=== PATIENT | female | born 1955 | race African-American/Black ===

== ENCOUNTER 2018-08-01 13:12 | Inpatient (IN) | payer SELFPAY ==
[2018-08-01] MEDS ORDERED: Nitroglycerin 0.4 MG TAB 1 EACH ONE (13:20)
[2018-08-01 13:55] LABS: #Basophils 0.1 thou/uL (0.0-0.2); #Eosinphils 0.1 thou/uL (0.0-0.7); #Lymphocytes 3.3 thou/uL (1.20-3.40); #Monocytes 0.4 thou/uL (0.11-0.59); #Neutrophils 3.6 thou/uL (1.40-6.50); %Basophils 0.7 % (0.0-1.0); %Eosinophils 1.9 % (0.0-10.0); %Lymphocytes 43.7 % (21.0-51.0); %Monocytes 5.7 % (0.0-10.0); Hemoglobin 12.7 g/dL (12.0-16.0); Mean Corpuscular Hemoglobin 30.9 pg (27.0-31.0); Mean Corpuscular Volume 93.7 fL (78.0-98.0); Mean Platelet Volume 11.6 fL (7.4-10.4); Platelet Count 150 thou/uL (130-400); RBC Distribution Width 13.5 % (11.5-14.5); White Blood Cell (WBC) Count 7.6 thou/uL (4.8-10.8)
--- NOTE | 2018-08-01 14:03 | RAD ---
SINGLE VIEW OF THE CHEST: COMPARISON: 03/08/2015. HISTORY: Shortness of breath. FINDINGS: A single view of the chest shows an enlarged cardiomediastinal silhouette. Bilateral pulmonary vascu lar enlargement is seen. Opacities are seen extending into the lower lobes which may represent pulmo nary edema. No pleural effusion is seen. IMPRESSION: Cardiomegaly and pulmonary vascular congestion may be secondary to congestive heart failure with volu me overload. POS: [facility]
[2018-08-01 14:07] LABS: ALT (SGPT) 48 U/L (8-55); AST (SGOT) 54 U/L (5-34); Albumin 3.6 g/dL (3.4-4.8); Alkaline Phosphatase 131 U/L (40-150); Anion Gap 16 mmol/L (10-20); BUN (Urea Nitrogen) 24 mg/dL (9.8-20.1); Bilirubin, Total 0.8 mg/dL (0.2-1.2); Calc. Creatinine Clearance 0 mL/min (70-130); Calcium 9.6 mg/dL (7.8-10.44); Carbon Dioxide 23 mmol/L (23-31); Chloride 105 mmol/L (98-107); Estimated GFR-MDRD 36; Globulin 4.5 g/dL (2.4-3.5); Glucose 309 mg/dL (80-115); Potassium 3.4 mmol/L (3.5-5.1); Protein, Total 8.1 g/dL (6.0-8.3); Sodium 141 mmol/L (136-145)
[2018-08-01] MEDS ORDERED: Nitroglycerin 50 MG/250 ML BOT 250 ML ONE (14:24)
[2018-08-01 14:27] LABS: CKMB 1.6 ng/mL (0-6.6)
[2018-08-01] MEDS ORDERED: Ondansetron PF 4 MG/2 ML Vial ONE (15:12)
[2018-08-01] MEDS ORDERED: Furosemide 40 MG/4 ML VIAL ONE ×2 (15:38→17:07)
[2018-08-01] MEDS ORDERED: cloNIDine 0.1 MG TAB ONE (17:07)
[2018-08-01] MEDS ORDERED: Acetaminophen 325 MG TAB ONE (17:07)
[2018-08-01 17:16] LABS: Troponin I 0.043 ng/mL (< 0.028)
[2018-08-01 18:19] VITALS: BMI 26.9
[2018-08-01] MEDS ORDERED: Acetaminophen 650 MG Suppository PR PRN (18:23)
[2018-08-01] MEDS ORDERED: SYSTANE 3.5 GM TUBE EA EYE PRN (18:23)
[2018-08-01] MEDS ORDERED: Acetaminophen 650 MG/20.3 ML UDCUP PO PRN (18:23)
[2018-08-01] MEDS ORDERED: Bisacodyl 10 MG SUPP PR PRN (18:23)
[2018-08-01] MEDS ORDERED: Nitroglycerin 50 MG/250 ML BOT 250 ML IVPB PRN (18:23)
[2018-08-01] MEDS ORDERED: Nitroglycerin 0.4 MG TAB (25 Tab Bottle) PO PRN (18:26)
[2018-08-01] MEDS ORDERED: Dextrose 50% Abboject 50 ML SYRINGE SLOW IVP PRN (18:26)
[2018-08-01] MEDS ORDERED: Insulin Regular 300 UNITS/3 ML VIAL SC PRN (18:26)
[2018-08-01] MEDS ORDERED: Dextrose 5% in Water 1,000 ML IV PRN (18:26)
[2018-08-01] MEDS ORDERED: Labetalol HCl 100 MG/20 ML VIAL SLOW IVP PRN (18:28)
[2018-08-01] MEDS ORDERED: Carvedilol 6.25 MG TAB PO SCH (18:30)
[2018-08-01] MEDS ORDERED: cloNIDine 0.1 MG TAB PO PRN (18:36)
[2018-08-01 20:17] LABS: Troponin I 0.049 ng/mL (< 0.028)
[2018-08-01] MEDS ORDERED: cloNIDine 0.1 MG TAB PO SCH (21:00)
[2018-08-01] MEDS: Famotidine 20 MG TAB PO SCH (21:53)
[2018-08-01] MEDS ORDERED: Acetaminophen 325 MG TAB PO PRN (22:41)
--- NOTE | 2018-08-01 23:54 | HP ---
PRIMARY CARE PHYSICIAN: None. PRIMARY AIDS SOCIAL WORKER: None. CHIEF COMPLAINT: Shortness of breath. HISTORY OF PRESENT ILLNESS: The patient is a 63-year-old female with hypertension with hypertensive heart disease and aortic aneurysm, presented to the emergency room with worsening shortness of breath along with chest tightness that started earlier today. Please note that the patient does not take any antihypertensives at home. She was last evaluated at this facility in 2014. Since 2015, she denies any hospitalization. She is currently on noninvasive positive pressure ventilation. The chest discomfort improved with nitroglycerin drip. According to her daughter, the shortness of breath and chest tightness started earlier today. It was more or less constant. She was unable to breathe and ambulance was called. When ambulance arrived, her blood pressure was 239/134. She received nitroglycerin spray and 1 inch patch was placed. She was placed on noninvasive positive pressure ventilation. A 10 mg labetalol was administered by EMS. She is currently on a nitroglycerin drip. PAST MEDICAL HISTORY: 1. Hypertension with hypertensive heart disease. 2. Medication noncompliance. 3. Chronic low back pain. 4. Diabetes mellitus type 2. 5. Dyslipidemia. 6. Aortic aneurysm. PAST SURGICAL HISTORY: . CURRENT HOME MEDICATIONS: Reviewed with the patient and none. ALLERGIES: THE PATIENT IS ALLERGIC TO PENICILLIN. SOCIAL HISTORY: The patient currently lives at home with her family. She is full code. She denies any history of smoking, alcohol, or drug use. FAMILY HISTORY: Positive for heart disease. REVIEW OF SYSTEMS: The patient denies any nausea, vomiting, epistaxis, or hematuria. No back pain reported. The chest tightness was more or less constant and has improved. It was gradual in onset. All other review of systems was reviewed and was found negative. PHYSICAL EXAMINATION: VITAL SIGNS: Temperature 98.2, respiration 36, pulse rate of 101, blood pressure 209/126 with O2 saturation 100% on noninvasive positive pressure ventilation on ER arrival. GENERAL: A 63-year-old female, in moderate to severe respiratory distress. HEENT: Head is atraumatic and normocephalic. Sclerae anicteric. Moist mucous membranes. No oral lesion. NECK: Supple. JVD elevated. No carotid bruit. LUNGS: Showed diffuse bibasilar rales with scattered rhonchi. Minimal wheezing. Accessory muscle use noted. HEART: S1 and S2 present. Regular rate and rhythm. Tachycardic. 2/6 systolic murmur over the mitral area. ABDOMEN: Soft and nontender. Bowel sounds present. EXTREMITIES: 1+ edema in bilateral lower extremity. No calf tenderness. SKIN: Warm and dry. LYMPH NODES: No palpable lymph nodes in the neck. PERIPHERAL VASCULAR: Radial pulses palpable bilaterally and equal. MUSCULOSKELETAL: No joint swelling or tenderness. LABORATORY DATA: 1. EKG by my review showed sinus rhythm with repolarization changes and left axis deviation. Chest x-ray by my review showed pulmonary vascular congestion. No mediastinal widening appreciated. 2. Troponin in the indeterminate range at 0.049. BNP 2062. Creatinine 1.72, potassium 3.4. 3. CT scan of the brain was negative for acute findings. IMPRESSION: 1. Hypertensive emergency with flash pulmonary edema. 2. Acute hypoxic respiratory failure secondary to pulmonary edema. 3. Acute kidney injury secondary to uncontrolled hypertension. 4. Elevated troponin secondary to congestive heart failure/demand ischemia. 5. Hypokalemia. 6. Medication noncompliance. 7. Prolonged QT. 8. History of aortic aneurysm. 9. Diabetes mellitus type 2. 10. Chronic low back pain. 11. Penicillin allergy. PLAN: The patient will be monitored in the intensive care unit. We will continue noninvasive positive pressure ventilation. Continue nitroglycerin drip. We will start her on carvedilol 12.5 mg b.i.d. due to aortic aneurysm. Continue IV diuretics. Clonidine as needed. Consult Cardiology and Critical Care. Check A1c and TSH in a.m. Workup for secondary hypertension. Plan was discussed with the patient and the family at the bedside. They stated understanding. Job ID: [id number]
[2018-08-02 00:32] LABS: Bilirubin Negative (Negative); Blood, Urine Trace (Negative); Clarity CLEAR (Clear); Glucose, Urine (Dipstick) Negative (Negative); Leukocyte Negative (Negative); Nitrite Negative (Negative); Protein, Urine (Dipstick) 100 mg/dL (Neg-Trace); Specific Gravity, Urine 1.008 (1.002-1.036)
[2018-08-02 00:35] LABS: Bacteria/HPF None Seen HPF (None Seen); Hyaline Casts/LPF 0-3 HYALINE CAST LPF (0-3 Hyaline); Pathc Cast-AUWi Flag 0.14 (0-2.49); RBC/HPF 0-3 HPF (0-3); Squamous Epithelial None Seen HPF (0-3); WBC/HPF None Seen HPF (0-3)
[2018-08-02] MEDS: Furosemide 40 MG/4 ML VIAL SLOW IVP SCH ×2 (05:25→13:02)
[2018-08-02 07:34] LABS: #Basophils 0.1 thou/uL (0.0-0.2); #Eosinphils 0.1 thou/uL (0.0-0.7); #Lymphocytes 2.1 thou/uL (1.20-3.40); #Monocytes 0.5 thou/uL (0.11-0.59); #Neutrophils 3.9 thou/uL (1.40-6.50); %Basophils 0.8 % (0.0-1.0); %Eosinophils 1.4 % (0.0-10.0); %Lymphocytes 32.1 % (21.0-51.0); %Monocytes 6.9 % (0.0-10.0); %Neutrophils 58.8 % (42.0-75.0); ALT (SGPT) 40 U/L (8-55); AST (SGOT) 39 U/L (5-34); Alkaline Phosphatase 104 U/L (40-150); Anion Gap 11 mmol/L (10-20); BUN (Urea Nitrogen) 28 mg/dL (9.8-20.1); Bilirubin, Total 0.6 mg/dL (0.2-1.2); Calc. Creatinine Clearance 38 mL/min (70-130); Calcium 9.2 mg/dL (7.8-10.44); Carbon Dioxide 26 mmol/L (23-31); Chloride 105 mmol/L (98-107); Estimated GFR-MDRD 34; Globulin 3.7 g/dL (2.4-3.5); Glucose 278 mg/dL (80-115); Hemoglobin 11.3 g/dL (12.0-16.0); Magnesium 1.5 mg/dL (1.6-2.6); Mean Corpuscular HGB CONC 32.9 g/dL (32.0-36.0); Mean Corpuscular Hemoglobin 30.7 pg (27.0-31.0); Mean Corpuscular Volume 93.1 fL (78.0-98.0); Mean Platelet Volume 11.6 fL (7.4-10.4); Platelet Count 118 thou/uL (130-400); Potassium 3.4 mmol/L (3.5-5.1); Protein, Total 6.7 g/dL (6.0-8.3); RBC Distribution Width 13.2 % (11.5-14.5); Red Blood Cell (RBC) Count 3.67 mill/uL (4.20-5.40); Sodium 139 mmol/L (136-145); White Blood Cell (WBC) Count 6.7 thou/uL (4.8-10.8)
[2018-08-02] MEDS ORDERED: Magnesium Sulfate 2 GM in Sodium Chloride 0.9% 100 ML IVPB SCH (08:00)
[2018-08-02] MEDS ORDERED: Magnesium 2 GM/50 ML 2 GM in Premix Bag 1 BAG IVPB SCH (08:30)
[2018-08-02] MEDS ORDERED: cloNIDine 0.1 MG TAB PO SCH (09:00)
[2018-08-02] MEDS: Carvedilol 6.25 MG TAB PO SCH ×2 (09:08→16:34)
[2018-08-02] MEDS: Aspirin 81 mg Enteric Coated Tablet PO SCH (09:09)
[2018-08-02] MEDS: Potassium Chloride 10 MEQ TAB PO SCH ×2 (09:09→16:33)
[2018-08-02] MEDS: Insulin Regular 300 UNITS/3 ML VIAL SC PRN ×3 (09:14→16:43)
--- NOTE | 2018-08-02 10:25 | CON ---
DATE OF CONSULTATION: HISTORY OF PRESENT ILLNESS: Darcy Barrera is a 63-year-old morbidly obese female, 81 kilograms, presented with shortness of breath with an associated fever, chills, smoked a pack a day for 30 years, quit smoking 30 years ago. No history of TB, pneumonia, or bronchial asthma. In most days, she says she can walk a half block following which she gets markedly short of breath. Denies any chest pain, but did have some tightness in the chest. She was given nitroglycerin paste and CPAP. She snores and awakens herself up with choking sensation, symptoms of sleep apnea. She has no primary care physician. PAST MEDICAL HISTORY: Apparently, history of diabetes, hypertension, takes no medication. PAST SURGICAL HISTORY: . Alcohol, none. Tobacco as noted. ALLERGIES: NONE. CURRENT MEDICATIONS: None. REVIEW OF SYSTEMS: Otherwise 10-point negative. PHYSICAL EXAMINATION: VITAL SIGNS: Sats are 100% on 2 L, blood pressure 130/80, pulse 77, respirations 25. CHEST: Minimal crackles without any wheezing. CARDIAC: Normal S1, S2. No gallops. ABDOMEN: No masses. EXTREMITIES: No edema. LABORATORY DATA: Her lab shows a white count platelet count is low 118. Creatinine is 1.8. Hemoglobin A1c is 9. Urine was normal. IMAGING STUDIES: Chest x-ray shows evidence of bibasilar infiltrates, cardiomegaly, consistent with CHF. IMPRESSION: Dyspnea, congestive heart failure, chronic obstructive pulmonary disease, pneumonia, diabetes, sleep apnea, morbid obesity. PLAN: I agree with present treatment with Cardiac input and needs outpatient sleep study. She was started on neb treatment, supportive care. Consider pulmonary function tests when she is stable. 70 minutes consultation note, 50% direct patient care. Job ID: [id number]
--- NOTE | 2018-08-02 19:14 | PDOC.PN ---
- Subjective Encounter Start Date: 08/02/18 Encounter Start Time: 09:30 Patient seen and examined for CHF/Resp failure. Off NIPPV. No CP. No new complaints. No overnight events - Objective MAR Reviewed: Yes Vital Signs & Weight: Vital Signs (12 hours) Temp Pulse Resp BP BP Pulse Ox 08/02/18 18:17 92 16 08/02/18 17:09 77 20 122/67 98 08/02/18 13:46 95 08/02/18 13:45 95 16 08/02/18 11:45 97.1 F L 80 20 139/82 98 08/02/18 09:08 129/77 08/02/18 08:23 96 08/02/18 08:00 97.5 F L 98 Weight Weight 164 lb 14.492 oz Most Recent Monitor Data Heart Rate from ECG 79 NIBP 141/87 NIBP BP-Mean 105 Respiration from ECG 18 SpO2 98 I&O: 08/01/18 08/02/18 08/03/18 06:59 06:59 06:59 Intake Total 693 940 Output Total 765 590 Balance -72 350 Result Diagrams: 08/02/18 06:48 08/02/18 06:48 Additional Labs: Accuchecks 08/02/18 08/02/18 08/01/18 16:39 11:18 21:53 POC Glucose 264 H 257 H 214 H EKG Reviewed by me: Yes (Tele SR) Phys Exam - Physical Examination Constitutional: NAD Respiratory: no wheezing, no rhonchi Bibasilar rales, Symmetrical Cardiovascular: RRR, no rub no heaves/pulsations Gastrointestinal: soft, non-tender, no distention, positive bowel sounds Musculoskeletal: edema present Neurological: non-focal, normal sensation, moves all 4 limbs Psychiatric: normal affect, A&O x 3 Skin: no rash Dx/Plan - Plan DVT proph w/SCDs IMPRESSION: 1. Hypertensive emergency with flash pulmonary edema/Acute CHF exacerbation. 2. Acute hypoxic respiratory failure secondary to pulmonary edema. s/p NIPPV. 3. Acute kidney injury secondary to uncontrolled hypertension. 4. Elevated troponin secondary to congestive heart failure/demand ischemia. 5. Hypokalemia/Hypomagnessemia. 6. Medication noncompliance. 7. Prolonged QT. 8. History of aortic aneurysm. 9. Diabetes mellitus type 2. 10. Chronic low back pain. 11. Penicillin allergy. PLAN: Cont diuretics Transfer to Tele Cont Coreg Cont ASA Hold ACEI due to ALEC AM labs Await Echo Replace electrolytes Renin/Aldosterone pending Laboratory Tests 08/02/18 08/02/18 06:48 06:49 Hemoglobin A1c 9.0 H Magnesium 1.5 L Review of Systems - Review of Systems Respiratory: SOB with Excertion. negative: Cough, Dry, Shortness of Breath, Hemoptysis, Pleuritic Pain, Sputum, Wheezing Cardiovascular: negative: chest pain, palpitations, orthopnea, paroxysmal nocturnal dyspnea, edema, light headedness, other Gastrointestinal: negative: Nausea, Vomiting, Abdominal Pain, Diarrhea, Constipation, Melena, Hematochezia, Other - Medications/Allergies Allergies/Adverse Reactions: Allergies Allergy/AdvReac Type Severity Reaction Status Date / Time Penicillins Allergy Verified 12/30/13 13:02 Medications: Current Medications Acetaminophen (Tylenol Elixir) 650 mg PO Q6H PRN PRN Reason: Fever > 101 or Mild Pain Acetaminophen (Tylenol) 650 mg TN Q6H PRN PRN Reason: Fever > 101 or Mild Pain Acetaminophen (Tylenol) 650 mg PO Q4H PRN PRN Reason: Headache/Fever or Mild Pain Albuterol/Ipratropium (Duoneb) 3 ml NEB [id number] [facility] Last Admin: 08/02/18 18:17 Dose: 3 ml Aspirin (Ecotrin) 81 mg PO DAILY [facility] Last Admin: 08/02/18 09:09 Dose: 81 mg Bisacodyl (Dulcolax) 10 mg TN DAILYPRN PRN PRN Reason: Constipation Carvedilol (Coreg) 12.5 mg PO BID-WM [facility] Last Admin: 08/02/18 16:34 Dose: 12.5 mg Clonidine (Catapres) 0.1 mg PO Q4H PRN PRN Reason: Systolic BP > 180 Dextrose/Water (Dextrose 50%) 25 gm SLOW IVP PRN PRN PRN Reason: Hypoglycemia Doxycycline Hyclate (Vibramycin) 100 mg PO BID [facility] Stop: 08/07/18 21:01 Famotidine (Pepcid) 20 mg PO QPM [facility] Last Admin: 08/01/18 21:53 Dose: 20 mg Furosemide (Lasix) 40 mg SLOW IVP 0600,1400 [facility] Last Admin: 08/02/18 13:02 Dose: 40 mg Glucagon (Glucagon) 1 mg IM PRN PRN PRN Reason: Hypoglycemia Dextrose/Water (D5w) 1,000 mls @ 0 mls/hr IV .Q0M PRN PRN Reason: Hypoglycemia Insulin Human NPH (Humulin N) 10 unit SC BID [facility] Insulin Human Regular (Humulin R) 0 units SC .MODERATE SLIDING SC PRN PRN Reason: Moderate Correctional Scale Last Admin: 08/02/18 16:43 Dose: 6 unit Insulin Human Regular (Humulin R) 0 units SC .BEDTIME SLIDING SC PRN PRN Reason: Bedtime Correctional Scale Labetalol HCl (Normodyne) 10 mg SLOW IVP Q4H PRN PRN Reason: Systolic BP > 180 Mineral Oil/White Petrolatum (Systane Nighttime Eye Ointment) 0 gm EA EYE PRN PRN PRN Reason: Dry Eyes Nitroglycerin (Nitrostat) 0.4 mg PO Q5MIN PRN PRN Reason: Chest Pain Sodium Chloride (Flush - Normal Saline) 10 ml IVF Q12HR [facility] Last Admin: 08/02/18 13:02 Dose: 10 ml Sodium Chloride (Flush - Normal Saline) 10 ml IVF PRN PRN PRN Reason: Saline Flush
[2018-08-02] MEDS: NPH, Human Insulin Isophane 300 UNIT/3 ML VIAL SC SCH (21:15)
[2018-08-02] MEDS: Famotidine 20 MG TAB PO SCH (21:16)
[2018-08-02] MEDS: Doxycycline 100 MG CAP PO SCH (21:16)
[2018-08-03] MEDS: Furosemide 40 MG/4 ML VIAL SLOW IVP SCH (05:23)
[2018-08-03 05:53] LABS: #Basophils 0.1 thou/uL (0.0-0.2); #Eosinphils 0.2 thou/uL (0.0-0.7); #Lymphocytes 2.2 thou/uL (1.20-3.40); #Monocytes 0.5 thou/uL (0.11-0.59); #Neutrophils 3.1 thou/uL (1.40-6.50); %Basophils 0.9 % (0.0-1.0); %Eosinophils 2.8 % (0.0-10.0); %Lymphocytes 37.4 % (21.0-51.0); %Monocytes 7.5 % (0.0-10.0); %Neutrophils 51.4 % (42.0-75.0); Mean Corpuscular HGB CONC 32.5 g/dL (32.0-36.0); Mean Corpuscular Hemoglobin 30.6 pg (27.0-31.0); Mean Platelet Volume 11.2 fL (7.4-10.4); Platelet Count 123 thou/uL (130-400); RBC Distribution Width 13.4 % (11.5-14.5); Red Blood Cell (RBC) Count 3.59 mill/uL (4.20-5.40); White Blood Cell (WBC) Count 5.9 thou/uL (4.8-10.8)
[2018-08-03 06:30] LABS: ALT (SGPT) 40 U/L (8-55); AST (SGOT) 56 U/L (5-34); Alkaline Phosphatase 98 U/L (40-150); Anion Gap 16 mmol/L (10-20); BUN (Urea Nitrogen) 37 mg/dL (9.8-20.1); Bilirubin, Total 0.6 mg/dL (0.2-1.2); Calc. Creatinine Clearance 37 mL/min (70-130); Calcium 9.1 mg/dL (7.8-10.44); Carbon Dioxide 20 mmol/L (23-31); Chloride 106 mmol/L (98-107); Estimated GFR-MDRD 29; Globulin 4.1 g/dL (2.4-3.5); Glucose 191 mg/dL (80-115); Magnesium 2.4 mg/dL (1.6-2.6); Potassium 4.5 mmol/L (3.5-5.1); Protein, Total 7.1 g/dL (6.0-8.3); Sodium 137 mmol/L (136-145)
[2018-08-03] MEDS ORDERED: Furosemide 40 MG/4 ML VIAL SLOW IVP SCH (09:00)
[2018-08-03] MEDS: Aspirin 81 mg Enteric Coated Tablet PO SCH (09:43)
[2018-08-03] MEDS: Carvedilol 6.25 MG TAB PO SCH ×2 (09:43→16:54)
[2018-08-03] MEDS: Doxycycline 100 MG CAP PO SCH ×2 (09:43→20:56)
--- NOTE | 2018-08-03 09:47 | PRG ---
DATE OF SERVICE: 08/03/2018 SUBJECTIVE: A 63-year-old female, who was admitted with shortness of breath. X-ray shows CHF findings. Her EF was 25%. She says she is feeling better this morning. OBJECTIVE: VITAL SIGNS: Saturations are 98% on 2 L, pulse was 80, temperature 98, blood pressure 130/95. CHEST: Bilateral crackles. CARDIAC: Normal S1 and S2. No gallops. ABDOMEN: No masses. LABORATORY DATA: Creatinine is 2.8. White count 5000. IMPRESSION: 1. Congestive cardiomyopathy. 2. Bronchitis. PLAN: 1. Continue cardiac care. 2. Pulmonary follow at a distance. Please call if needed. Job ID: [id number]
[2018-08-03] MEDS: NPH, Human Insulin Isophane 300 UNIT/3 ML VIAL SC SCH ×2 (09:51→20:56)
[2018-08-03] MEDS ORDERED: Communication Order-Pharmacy FS SCH (11:00)
--- NOTE | 2018-08-03 12:03 | CON ---
DATE OF CONSULTATION: HISTORY OF PRESENT ILLNESS: This is a 63-year-old black female with longstanding history of hypertension and noncompliance with medications. She was seen here in December 2013 and ejection fraction was 55% to 60% with left ventricular hypertrophy. She also had a chest CT, which revealed aneurysmal dilatation of the aortic arch, but no dissection. She was discharged on diabetes and blood pressure medicines, and cholesterol medicine. She apparently does not really take any medications and does not recall the last time she regularly took blood pressure medicine. She started to notice increasing exertional dyspnea. She also would have chest pressure at rest or with exertion and whenever she would have this, this would last most of the day. She also began to notice peripheral edema. Due to her worsening breathing, she came to the emergency room for further evaluation. PAST MEDICAL HISTORY: Hypertension, diabetes, hyperlipidemia, aortic aneurysm, and medical noncompliance. OPERATIONS: . MEDICATIONS: None. ALLERGIES: PENICILLIN. SOCIAL HISTORY: She used to smoke many years ago. She does not smoke or drink at the present time. FAMILY HISTORY: No one in her family has had myocardial infarction or bypass surgery. REVIEW OF SYSTEMS: A 10-point review of systems are unremarkable except as noted above. PHYSICAL EXAMINATION: VITAL SIGNS: Blood pressure 152/86 and pulse of 82. HEENT: PERRL. NECK: Supple. CHEST: Clear. CARDIAC: S1 and S2 normal without any S3, S4, or murmurs. Carotid upstrokes normal without bruits. ABDOMEN: Normal bowel sounds without tenderness or organomegaly. The abdomen was obese. EXTREMITIES: Revealed 1+ pretibial edema. NEUROLOGIC: Grossly intact. SKIN: Warm and dry. LABORATORY DATA: EKG revealed normal sinus rhythm with anterior and lateral T-wave changes. Echocardiogram revealed the left ventricle to be increased in size, severe left ventricular dysfunction with ejection fraction of 20% to 25%, moderate left atrial enlargement, moderate mitral regurgitation, mild aortic regurgitation, and [id number] tricuspid regurgitation. Sodium 137, potassium 4.5, chloride 106, carbon dioxide 20, BUN 37, creatinine 2.08, and blood sugars have been sized to 72. Hemoglobin A1c 9.0. Her creatinine has increased from 1.72 to 2.08 since admission and her Lasix dose has been reduced. Troponin I 0.049 and BNP 2061.9. IMPRESSION: 1. Severe cardiomyopathy, probably secondary to longstanding and untreated hypertension. 2. Demand ischemia. 3. Chronic kidney disease. 4. Hypercholesterolemia. 5. Diabetes. 6. Distant smoker. 7. Obesity. 8. Possible sleep apnea. PLAN: With her multiple cardiac risk factors and severe left ventricular dysfunction, coronary artery disease needs to be excluded, this is the reason for her cardiomyopathy. It is recommended she undergo cardiac catheterization. Risks of this were discussed including , myocardial infarction, dye reaction, vascular injury, CVA, transfusion, limb loss, renal loss, etc. Also risk of intervention with stent placement were discussed including , myocardial infarction, emergent CABG, restenosis, stent thrombosis, vessel perforation, etc. I would only place a bare-metal stent in this noncompliant patient. Her cardiac catheterization will be performed in the biplane room to reduce the amount of contrast. Also, consideration should be given to chest CT during this admission to re-evaluate her thoracic aortic aneurysm. I agree with the use of carvedilol. Angiotensin-converting enzyme inhibitor and angiotensin receptor blockers drugs should be avoided with her renal insufficiency. Fasting lipid profile will also be obtained. Certainly, it is a difficult problem in the patient's never takes medications. Consideration also should be given to placement of LifeVest at the time of discharge, although if she cannot afford her medications, I doubt she will be able to obtain a LifeVest. Job ID: [id number]
[2018-08-03] MEDS: Insulin Regular 300 UNITS/3 ML VIAL SC PRN (12:09)
--- NOTE | 2018-08-03 14:29 | CT ---
CT CHEST WITHOUT CONTRAST: Date: 08/03/18 HISTORY: Thoracic aneurysm. COMPARISON: CT dated 03/08/15. FINDINGS: Exam is limited without intravenous contrast. Thoracic aortic size is as above. Measurements of the sinuses of Valsalva and sinotubular junction ar e limited without intravenous contrast. Mid ascending aorta: 3.2 cm Proximal transverse aorta: 2.9 cm Distal transverse aorta: 3.7 cm Proximal descending thoracic aorta: 5.5 cm There are new moderate layering bilateral pleural effusions. Mild third spacing of fluid within the s uperficial soft tissues. Limited evaluation of the upper abdomen is unremarkable. No significant pericardial fluid. Heart size is enlarged. Mild pulmonary venous congestion. No osteolytic or osteoblastic lesions. No thoracic spine compressio n fracture. IMPRESSION: 1. Size unchanged thoracic aortic aneurysm measuring up to 5.5 cm. 2. New moderate layering pleural effusion, as well as mild pulmonary venous congestion, suggesting d ecompensated congestive heart failure. POS: [facility]
--- NOTE | 2018-08-03 20:54 | PDOC.PN ---
- Subjective Encounter Start Date: 08/03/18 Encounter Start Time: 10:30 Patient seen and examined for HTN crisis/CHF. No CP. No new complaints. No overnight events - Objective MAR Reviewed: Yes Vital Signs & Weight: Vital Signs (12 hours) Temp Pulse Resp BP BP Pulse Ox 08/03/18 16:54 152/86 H 08/03/18 16:00 97.5 F L 82 18 129/76 97 08/03/18 12:00 98.0 F 80 18 139/87 99 08/03/18 09:43 152/86 H Weight Weight 185 lb Most Recent Monitor Data Heart Rate from ECG 79 NIBP 141/87 NIBP BP-Mean 105 Respiration from ECG 18 SpO2 98 I&O: 08/02/18 08/03/18 08/04/18 06:59 06:59 06:59 Intake Total 693 940 880 Output Total 765 1140 750 Balance -72 -200 130 Result Diagrams: 08/03/18 04:45 08/03/18 04:45 Additional Labs: Accuchecks 08/03/18 08/03/18 08/03/18 16:48 10:52 06:08 POC Glucose 168 H 258 H 272 H 08/02/18 20:23 POC Glucose 185 H EKG Reviewed by me: Yes (Tele SR) Phys Exam - Physical Examination Constitutional: NAD Respiratory: no wheezing, no rhonchi few rales at bases Cardiovascular: RRR, no rub Gastrointestinal: soft, non-tender Musculoskeletal: no edema Neurological: moves all 4 limbs Dx/Plan - Plan DVT proph w/SCDs IMPRESSION: 1. Hypertensive emergency with flash pulmonary edema/Acute systolic CHF exacerbation. 2. Acute hypoxic respiratory failure secondary to pulmonary edema. s/p NIPPV. 3. Acute kidney injury secondary to uncontrolled hypertension. 4. Elevated troponin secondary to congestive heart failure/demand ischemia. 5. Hypokalemia/Hypomagnessemia. 6. Medication noncompliance. 7. Prolonged QT. 8. History of aortic aneurysm. 9. Diabetes mellitus type 2. uncontrolled. 10. Chronic low back pain. 11. Penicillin allergy. PLAN: Cont diuretics - reduce dose Cont Coreg/ASA Hold ACEI due to ALEC AM labs Cath in AM Renin/Aldosterone pending Add NPH Review of Systems - Review of Systems Respiratory: negative: Cough, Dry, Shortness of Breath, Hemoptysis, SOB with Excertion, Pleuritic Pain, Sputum, Wheezing Cardiovascular: negative: chest pain, palpitations, orthopnea, paroxysmal nocturnal dyspnea, edema, light headedness, other Gastrointestinal: negative: Nausea, Vomiting, Abdominal Pain, Diarrhea, Constipation, Melena, Hematochezia, Other - Medications/Allergies Allergies/Adverse Reactions: Allergies Allergy/AdvReac Type Severity Reaction Status Date / Time Penicillins Allergy Verified 12/30/13 13:02 Medications: Current Medications Acetaminophen (Tylenol) 650 mg OH Q6H PRN PRN Reason: Fever > 101 or Mild Pain Acetaminophen (Tylenol) 650 mg PO Q4H PRN PRN Reason: Headache/Fever or Mild Pain Albuterol/Ipratropium (Duoneb) 3 ml NEB Q6H PRN PRN Reason: SOB &/or Wheezing Aspirin (Ecotrin) 81 mg PO DAILY [facility] Last Admin: 08/03/18 09:43 Dose: 81 mg Bisacodyl (Dulcolax) 10 mg [place] DAILYPRN PRN PRN Reason: Constipation Carvedilol (Coreg) 12.5 mg PO BID-[facility] Last Admin: 08/03/18 16:54 Dose: 12.5 mg Clonidine (Catapres) 0.1 mg PO Q4H PRN PRN Reason: Systolic BP > 180 Dextrose/Water (Dextrose 50%) 25 gm SLOW IVP PRN PRN PRN Reason: Hypoglycemia Doxycycline Hyclate (Vibramycin) 100 mg PO BID [facility] Stop: 08/07/18 21:01 Last Admin: 08/03/18 09:43 Dose: 100 mg Famotidine (Pepcid) 20 mg PO QPM [facility] Last Admin: 08/02/18 21:16 Dose: 20 mg Furosemide (Lasix) 40 mg SLOW IVP DAILY [facility] Last Admin: 08/03/18 09:46 Dose: 40 mg Glucagon (Glucagon) 1 mg IM PRN PRN PRN Reason: Hypoglycemia Dextrose/Water (D5w) 1,000 mls @ 0 mls/hr IV .Q0M PRN PRN Reason: Hypoglycemia Sodium Chloride (Normal Saline 0.9%) 1,000 mls @ 100 mls/hr IV .Q10H [facility] Insulin Human NPH (Humulin N) 10 unit SC BID [facility] Last Admin: 08/03/18 09:51 Dose: 10 unit Insulin Human Regular (Humulin R) 0 units SC .MODERATE SLIDING SC PRN PRN Reason: Moderate Correctional Scale Last Admin: 08/03/18 12:09 Dose: 6 unit Insulin Human Regular (Humulin R) 0 units SC .BEDTIME SLIDING SC PRN PRN Reason: Bedtime Correctional Scale Labetalol HCl (Normodyne) 10 mg SLOW IVP Q4H PRN PRN Reason: Systolic BP > 180 Mineral Oil/White Petrolatum (Systane Nighttime Eye Ointment) 0 gm EA EYE PRN PRN PRN Reason: Dry Eyes Miscellaneous Information (Communication Order-Pharmacy) 0 each FS ONE [facility] Stop: 08/04/18 11:01 Nitroglycerin (Nitrostat) 0.4 mg PO Q5MIN PRN PRN Reason: Chest Pain Sodium Chloride (Flush - Normal Saline) 10 ml IVF Q12HR [facility] Last Admin: 08/03/18 09:50 Dose: 10 ml Sodium Chloride (Flush - Normal Saline) 10 ml IVF PRN PRN PRN Reason: Saline Flush
[2018-08-03] MEDS: Famotidine 20 MG TAB PO SCH (20:56)
[2018-08-04 05:05] LABS: #Eosinphils 0.2 thou/uL (0.0-0.7); #Lymphocytes 1.9 thou/uL (1.20-3.40); #Monocytes 0.5 thou/uL (0.11-0.59); #Neutrophils 3.5 thou/uL (1.40-6.50); %Basophils 0.2 % (0.0-1.0); %Eosinophils 2.8 % (0.0-10.0); %Lymphocytes 31.8 % (21.0-51.0); %Monocytes 7.3 % (0.0-10.0); %Neutrophils 57.8 % (42.0-75.0); Hemoglobin 10.7 g/dL (12.0-16.0); Mean Corpuscular HGB CONC 32.3 g/dL (32.0-36.0); Mean Corpuscular Hemoglobin 30.3 pg (27.0-31.0); Mean Platelet Volume 11.2 fL (7.4-10.4); Platelet Count 118 thou/uL (130-400); RBC Distribution Width 13.2 % (11.5-14.5); Red Blood Cell (RBC) Count 3.53 mill/uL (4.20-5.40); White Blood Cell (WBC) Count 6.1 thou/uL (4.8-10.8)
[2018-08-04] MEDS: Aspirin 81 mg Enteric Coated Tablet PO SCH (05:15)
[2018-08-04] MEDS: Carvedilol 6.25 MG TAB PO SCH ×2 (05:15→16:11)
[2018-08-04] MEDS: Doxycycline 100 MG CAP PO SCH (05:15)
[2018-08-04 05:28] LABS: Cardiac Risk 3.4 (Less than 4.5); Magnesium 1.5 mg/dL (1.6-2.6)
[2018-08-04] MEDS ORDERED: Sodium Chloride 0.9% 1,000 ML IV SCH ×2 (06:00→09:12)
[2018-08-04] MEDS ORDERED: Heparin 10,000 UNITS/1 ML VIAL ONE ×2 (06:34→08:36)
[2018-08-04] MEDS ORDERED: Midazolam HCl 2 mg/2 ml Vial ONE (08:39)
[2018-08-04] MEDS ORDERED: Fentanyl 100 MCG/2 ML VIAL ONE (08:39)
[2018-08-04] MEDS ORDERED: Protamine Sulfate 50 MG/5 ML VIAL ONE (08:53)
[2018-08-04] MEDS ORDERED: Nitroglycerin 0.4 MG TAB (25 Tab Bottle) SL PRN (09:08)
[2018-08-04] MEDS ORDERED: Acetaminophen/Codeine 30-300mg Tablet PO PRN ×2 (09:08)
[2018-08-04] MEDS ORDERED: traMADol HCl 50 MG TAB PO PRN (09:08)
[2018-08-04] MEDS ORDERED: Iopamidol 370 76% 100 ML VIAL ONE (09:12)
[2018-08-04 09:23] LABS: Anion Gap 12 mmol/L (10-20); BUN (Urea Nitrogen) 42 mg/dL (9.8-20.1); Calc. Creatinine Clearance 42 mL/min (70-130); Calcium 9.4 mg/dL (7.8-10.44); Carbon Dioxide 22 mmol/L (23-31); Chloride 107 mmol/L (98-107); Estimated GFR-MDRD 35; Glucose 141 mg/dL (80-115); Potassium 3.6 mmol/L (3.5-5.1); Sodium 137 mmol/L (136-145)
[2018-08-04] MEDS ORDERED: Sodium Chloride 0.9% 200 ML IV SCH ×2 (09:45)
[2018-08-04] MEDS: NPH, Human Insulin Isophane 300 UNIT/3 ML VIAL SC SCH (10:27)
--- NOTE | 2018-08-04 10:37 | PDOC.PN ---
- Subjective Encounter Start Date: 08/04/18 Encounter Start Time: 10:35 Ms. Barrera was seen today in follow-up of CHF exacerbation. She is breathing better today. She had a litle chest tightness earlier, bit this is better now. - Objective MAR Reviewed: Yes Vital Signs & Weight: Vital Signs (12 hours) Temp Pulse Resp BP Pulse Ox 08/04/18 06:51 97 08/04/18 05:38 116 H 18 97 08/04/18 04:00 98.5 F 80 12 162/94 H 95 Weight Weight 180 lb 5 oz Most Recent Monitor Data Heart Rate from ECG 79 NIBP 141/87 NIBP BP-Mean 105 Respiration from ECG 18 SpO2 98 I&O: 08/03/18 08/04/18 08/05/18 06:59 06:59 06:59 Intake Total 940 1120 Output Total 1140 750 Balance -200 370 Result Diagrams: 08/04/18 04:48 08/04/18 04:48 Additional Labs: Accuchecks 08/04/18 08/04/18 08/03/18 10:20 05:43 20:35 POC Glucose 160 H 152 H 207 H 08/03/18 08/03/18 16:48 10:52 POC Glucose 168 H 258 H Phys Exam - Physical Examination HEENT: PERRLA Respiratory: no wheezing, no rales, no rhonchi, clear to auscultation bilateral Cardiovascular: RRR, no significant murmur, no rub + S4 Gastrointestinal: soft, non-tender, no distention, positive bowel sounds Musculoskeletal: pulses present, edema present 1+ pitting edema in both lower extremities Dx/Plan (1) Acute on chronic systolic heart failure, NYHA class 2 Code(s): I50.23 - ACUTE ON CHRONIC SYSTOLIC (CONGESTIVE) HEART FAILURE Status : Acute (2) Hypertension Code(s): I10 - ESSENTIAL (PRIMARY) HYPERTENSION Status: Chronic (3) Diabetes mellitus type 2 in nonobese Code(s): E11.9 - TYPE 2 DIABETES MELLITUS WITHOUT COMPLICATIONS Status: Chronic - Plan * Acute systolic heart failure exacerbation- she is now compensated * Cardiac Cath results noted- she had minimal CAD, and CHF is likely due to uncontrolled blood pressure * CKD- stage 3- stable * Stable for discharge home later today- She will be fitted for Life-Vest as Outpatient.
[2018-08-04 16:06] VITALS: BP 158/84; TEMP 97.4
[2018-08-04] MEDS ORDERED: Isosorbide Dinitrate 20 MG TAB PO SCH (21:00)
[2018-08-04] MEDS ORDERED: Atorvastatin Calcium 10 MG TAB PO SCH (21:00)
[2018-08-04] MEDS ORDERED: hydrALAZINE 25 MG TAB PO SCH (21:00)
--- NOTE | 2018-08-05 01:48 | DIS ---
DATE OF ADMISSION: 08/01/2018 DATE OF DISCHARGE: 08/04/2018 PRIMARY CARE PHYSICIAN: She does not have a primary care physician. DISCHARGE DISPOSITION: Home. PRIMARY DISCHARGE DIAGNOSES: 1. Acute systolic heart failure, stage II. 2. Hypertension with hypertensive heart disease. 3. Hypertensive urgency. 4. Diabetes mellitus type 2. 5. Dyslipidemia. 6. Chronic kidney disease stage 3. DISCHARGE MEDICATIONS: Include, 1. Aspirin 81 mg daily. 2. Lipitor 10 mg at bedtime. 3. Carvedilol 12.5 mg twice a day. 4. Doxycycline 100 mg twice a day for 7 days. 5. Lasix 40 mg daily. 6. Apresoline 25 mg twice daily. 7. Insulin 70/30 eight units twice a day. 8. Isordil 10 mg twice a day. 9. Tramadol 50 mg q.6 as needed. PROCEDURES DONE DURING ADMISSION: The patient had a cardiac catheterization in which there was some mild coronary artery disease with 30% proximal LAD, 20% mid LAD lesion, a 20% mid circ, and a 20% RCA lesion. The patient had an echocardiogram in which the ejection fraction was estimated at 20% to 25%. LV function was severely depressed. There was sszm-ew-jdvkhjip tricuspid regurgitation. The patient also had a CT scan of the chest in which there was an unchanged thoracic aneurysm measuring up to 5.5 cm. CODE STATUS: Full code. ALLERGIES: PENICILLIN IN THE CODE STATUS. IMPRESSION: Ms. Barrera is a 63-year-old female who presented to the emergency room complaining of chest pain and shortness of breath. She was evaluated by Cardiology and initially had a severe elevation in her blood pressure with 230 systolic and 110 diastolic. She was admitted to the ICU and placed on a nitroglycerin drip with control of her blood pressure. Again, she was evaluated by Cardiology who had the patient undergo cardiac catheterization due to her symptoms. She was found to have mild coronary artery disease, but a severely depressed ejection fraction. She was placed on medications for heart failure as well as for her blood pressure, and placed on insulin for diabetes mellitus. She was instructed on the need for medical compliance and the dangers of not being compliant. Also resources were obtained to help her in the outpatient setting to obtain her medications. Once she was stabilized, she was able to be discharged home in stable condition with close outpatient followup. Job ID: [id number]
[2018-08-05] MEDS ORDERED: Furosemide 40 MG TAB PO SCH (07:30)
[2018-08-06 11:25] LABS: Renin Activity 0.597 ng/mL/hr (0.167-5.380)
== END 2018-08-04 19:17 | disposition home or self-care (01) | DRG 286 ==
LOC: ERS 13:12 → CCU 18:05 → 2NO 08-02 11:20
PROVIDERS: ADMIT Internal Medicine; ATTEND Internal Medicine
PROC: 5A09357 Assistance with Respiratory Ventilation, Less than 24 Consecutive Hours, Continuous Positive Airway Pressure (ICD-10-PCS; 2018-08-01)
PROC: 4A023N7 Measurement of Cardiac Sampling and Pressure, Left Heart, Percutaneous Approach (ICD-10-PCS; principal; 2018-08-04)
PROC: B2111ZZ Fluoroscopy of Multiple Coronary Arteries using Low Osmolar Contrast (ICD-10-PCS; 2018-08-04)
DX: I13.0 Hypertensive heart and chronic kidney disease with heart failure and stage 1 through stage 4 chronic kidney disease, or unspecified chronic kidney disease (principal); J96.01 Acute respiratory failure with hypoxia; I50.23 Acute on chronic systolic (congestive) heart failure; J18.9 Pneumonia, unspecified organism; N17.9 Acute kidney failure, unspecified; I24.8 Other forms of acute ischemic heart disease; J44.0 Chronic obstructive pulmonary disease with (acute) lower respiratory infection; I25.10 Atherosclerotic heart disease of native coronary artery without angina pectoris; I42.0 Dilated cardiomyopathy; I16.0 Hypertensive urgency; N18.3 Chronic kidney disease, stage 3 (moderate); E11.22 Type 2 diabetes mellitus with diabetic chronic kidney disease; Z91.14 Patient's other noncompliance with medication regimen; E87.6 Hypokalemia; G89.29 Other chronic pain; M54.5 Low back pain; I71.2 Thoracic aortic aneurysm, without rupture; E83.42 Hypomagnesemia; I45.81 Long QT syndrome; I07.1 Rheumatic tricuspid insufficiency; G47.30 Sleep apnea, unspecified; Z88.0 Allergy status to penicillin; Z82.49 Family history of ischemic heart disease and other diseases of the circulatory system; Z79.4 Long term (current) use of insulin; Z87.891 Personal history of nicotine dependence
CPT/HCPCS: 36415; 36416; 71045; 71250; 80048; 80053; 80061; 81001; 82088; 82533; 82553; 83036; 83735; 83880; 84244; 84443; 84484; 85025; 90471; 90686; 93005; 93306; 93454; 94640; 94660; 94760; 96365; 96366; 96374; 96375; 99152; C1769; G0008; J1644; J1815; J1940; J2250; J2405; J2720; J3010; J3475; J3490; J7620; Q9967

== ENCOUNTER 2019-01-04 12:44 | Inpatient (IN) | payer MEDICAID, OTHER ==
[2019-01-04 13:29] LABS: Hemoglobin 12.1 g/dL (12.0-16.0); Mean Corpuscular HGB CONC 32.4 g/dL (32.0-36.0); Mean Corpuscular Hemoglobin 25.6 pg (27.0-31.0); Platelet Count 109 thou/uL (130-400); RBC Distribution Width 16.5 % (11.5-14.5); Red Blood Cell (RBC) Count 4.75 mill/uL (4.20-5.40); White Blood Cell (WBC) Count 9.3 thou/uL (4.8-10.8)
[2019-01-04 13:36] LABS: Anisocytosis SLIGHT = 6-15 cells (100X) (0-5/hpf); Eosinophils 1 % (0-10); Hypochromia SLIGHT = 6-15 cells (100X) (0-5/hpf); Lymphocytes 36 % (21-51); MDiff Complete? YES; Monocytes 2 % (0-10); Neutrophil 60 % (42-75); Platelet Morphology Comment Appears Decreased; Polychromasia SLIGHT = 2-3 cells (100X) (0-2/hpf)
[2019-01-04 13:45] LABS: ALT (SGPT) 51 U/L (8-55); AST (SGOT) 45 U/L (5-34); Albumin 3.8 g/dL (3.4-4.8); Alkaline Phosphatase 127 U/L (40-150); Anion Gap 15 mmol/L (10-20); BUN (Urea Nitrogen) 26 mg/dL (9.8-20.1); Bilirubin, Total 0.8 mg/dL (0.2-1.2); CK (CPK) 34 U/L (29-168); Calc. Creatinine Clearance 0 mL/min (70-130); Calcium 10.5 mg/dL (7.8-10.44); Carbon Dioxide 21 mmol/L (23-31); Chloride 105 mmol/L (98-107); Estimated GFR-MDRD 32; Globulin 4.4 g/dL (2.4-3.5); Glucose 322 mg/dL (80-115); Potassium 3.7 mmol/L (3.5-5.1); Protein, Total 8.2 g/dL (6.0-8.3); Sodium 137 mmol/L (136-145)
--- NOTE | 2019-01-04 14:26 | RAD ---
PORTABLE CHEST 1 VIEW: Date: 01/04/19 Time: 1302 hours HISTORY: Dyspnea. FINDINGS: Comparison made with exam of 08/01/18. The heart size is borderline, but stable. Aortic aneurysm is again seen. Lungs are well expanded with out lobar consolidation, pneumothoraces, robert pulmonary edema, or pleural effusions. IMPRESSION: No acute process. POS: OFF
[2019-01-04] MEDS ORDERED: hydrALAZINE 20 MG/ML VIAL ONE (16:17)
[2019-01-04 17:13] LABS: Troponin I 0.021 ng/mL (< 0.028)
[2019-01-04 17:41] VITALS: BMI 25.3
[2019-01-04] MEDS ORDERED: hydrALAZINE 20 MG/ML VIAL SLOW IVP PRN (17:59)
[2019-01-04] MEDS ORDERED: Labetalol HCl 100 MG/20 ML VIAL SLOW IVP PRN (17:59)
[2019-01-04] MEDS ORDERED: NIFEdipine XL 60 MG TAB PO SCH (18:00)
[2019-01-04] MEDS ORDERED: Dextrose 5% in Water 1,000 ML IV PRN (18:19)
[2019-01-04] MEDS ORDERED: Dextrose 50% Abboject 50 ML SYRINGE SLOW IVP PRN (18:19)
[2019-01-04] MEDS: Acetaminophen 325 MG TAB PO PRN ×2 (18:24→23:55)
[2019-01-04] MEDS: Nitroglycerin 2% Ointment 1 INCH/1 GM Packet TOP SCH (18:26)
--- NOTE | 2019-01-04 18:52 | HP ---
PRIMARY CARE PROVIDER: VELVET Bowden CHIEF COMPLAINT: High blood pressure. HISTORY OF PRESENT ILLNESS: Ms. Barrera is a pleasant 63-year-old lady, who was seen at [facility] on January 04, 2019. She was hospitalized at this facility in July 2018. She was found to have hypertensive urgency at that time. She also had cardiac catheterization, which showed mild coronary artery disease. She reports that following discharge, her blood pressures have been elevated. She reports that multiple adjustments are being made to her blood pressure medications. Recently, approximately four days ago, her lisinopril dose was increased. Also, she was switched to transdermal clonidine from clonidine pill. She reports picking up only the lisinopril prescription. She reports that she has had dizziness and blurred vision. Approximately a week ago, she fell. She denies any loss of consciousness or head trauma. She reports occasional nausea and vomiting. She reports numbness and tingling over her body. She also reports chest tightness earlier today. She reports that she has been using 5 to 6 pillows to sleep. She reports that this is normal for her. REVIEW OF SYSTEMS: All other systems were reviewed and found to be negative. PAST MEDICAL HISTORY: Congestive heart failure; diabetes mellitus type 2, insulin dependent; and hypertension. PAST SURGICAL HISTORY: section. PSYCHIATRIC HISTORY: Depression. SOCIAL HISTORY: The patient denies tobacco use, alcohol use, or recreational drug use. She is a former drug user. FAMILY HISTORY: Colon cancer in her sisters. ALLERGIES: PENICILLIN. CURRENT MEDICATIONS: 1. Isosorbide dinitrate 40 mg 3 times a day. 2. Furosemide 10 mg daily. 3. Hydralazine 100 mg 3 times a day. 4. Coreg 25 mg 2 times a day. 5. Atorvastatin 10 mg daily. 6. Clonidine 0.2 mg a day, she has not taken this medication in the last 4 days. 7. Novolin 70/30, 8 units subcutaneously 2 times a day. 8. Aspirin 81 mg daily. 9. Lisinopril 10 mg daily. PHYSICAL EXAMINATION: GENERAL: On examination, Ms. Barrera is awake and alert, not in acute distress. VITAL SIGNS: Blood pressure is 180/110, pulse 82, respiratory rate 23, and oxygen saturation 98% on room air. She is afebrile. EYES: No scleral icterus, no conjunctival pallor. ENT: Moist mucosal membranes. No oropharyngeal erythema or exudates. NECK: Supple, nontender, trachea is midline. RESPIRATORY: Accessory muscles of breathing are not active. Chest wall movements are symmetric bilaterally. LUNGS: Clear to auscultation without wheeze, rhonchi, or crepitations. CARDIOVASCULAR: S1 and S2 are heard, regular. Peripheral pulses palpable. No carotid bruit. No pericardial rub. ABDOMEN: Soft, nontender. Bowel sounds heard. No hepatomegaly. No splenomegaly. NEUROLOGIC: Cranial nerves 2 through 12 intact. Deep tendon reflexes 2+. Plantars downgoing bilaterally. No focal motor or sensory deficits. MUSCULOSKELETAL: Power is 5/5 in all 4 extremities. SKIN: No rashes or subcutaneous nodules. LYMPHATIC: No cervical lymphadenopathy. PSYCHIATRIC: Normal mood, normal affect. The patient is oriented to person, place, and time. LABORATORY DATA: Ms. Barrera's labs and investigations were reviewed. I reviewed her electrocardiogram, which shows normal sinus rhythm, no ST changes to suggest an acute coronary syndrome. I also reviewed her chest x-ray, which does not show any pulmonary infiltrates. She has normal white count, normal hemoglobin, decreased platelet count of 109,000, platelet count was 118,000 in July of this year. Normal sodium, normal potassium, elevated blood urea nitrogen of 26, elevated creatinine of 1.94, creatinine was 1.78 on August 04, 2018 and 2.08 on August 03, 2018, elevated glucose of 322, elevated calcium of 10.5, elevated AST of 45, normal ALT, normal troponin-I x2, and elevated BNP of 291.3. ASSESSMENT AND PLAN: Ms. Barrera is a pleasant 63-year-old lady, who was seen at [facility] on January 04, 2019. Her problem list includes: 1. Hypertensive urgency: Ms. Barrera is presenting with hypertensive urgency. It is unclear whether she is compliant with all of her medications. She will be admitted to the hospital. We will resume her medications. We will start her on p.r.n. labetalol and hydralazine intravenously. We will check her 2D echocardiogram. If ejection fraction has improved, may consider calcium channel hector. If blood pressures do not improve, we will consider cardiology consultation. 2. Diabetes mellitus type 2: We will check hemoglobin A1c, given her elevated blood sugar in the emergency room. We will start her on Accu-Cheks and insulin sliding scale. 3. Chronic kidney disease 4: Appears to be stable, we will follow renal function. 4. Congestive heart failure: We will continue her on furosemide. Many thanks for allowing me to participate in your patient's care. Please feel free to contact me with any questions or concerns. LEVEL OF RISK: High. LEVEL OF COMPLEXITY: High. Job ID: [id number]
[2019-01-04 19:46] LABS: Troponin I 0.039 ng/mL (< 0.028)
[2019-01-04] MEDS: hydrALAZINE 25 MG TAB PO SCH (21:00)
[2019-01-04] MEDS: Isosorbide Dinitrate 20 MG TAB PO SCH (21:00)
[2019-01-04] MEDS ORDERED: cloNIDine 0.2mg/24 Hour PATCH TD SCH (21:00)
[2019-01-04] MEDS ORDERED: hydrALAZINE 25 MG TAB PO SCH (21:00)
[2019-01-05] MEDS: Nitroglycerin 2% Ointment 1 INCH/1 GM Packet TOP SCH (00:02)
[2019-01-05] MEDS ORDERED: HYDROcodone/Acetaminophen 5/325 mg Tablet PO SCH (00:15)
[2019-01-05 04:56] LABS: #Basophils 0.1 thou/uL (0.0-0.2); #Eosinphils 0.1 thou/uL (0.0-0.7); #Lymphocytes 4.2 thou/uL (1.20-3.40); #Monocytes 0.6 thou/uL (0.11-0.59); #Neutrophils 3.6 thou/uL (1.40-6.50); %Eosinophils 1.5 % (0.0-10.0); %Monocytes 7.3 % (0.0-10.0); %Neutrophils 41.2 % (42.0-75.0); Hemoglobin 11.1 g/dL (12.0-16.0); Mean Corpuscular HGB CONC 33.2 g/dL (32.0-36.0); Mean Corpuscular Hemoglobin 26.5 pg (27.0-31.0); Mean Corpuscular Volume 79.9 fL (78.0-98.0); Mean Platelet Volume 12.5 fL (7.4-10.4); Platelet Count 116 thou/uL (130-400); RBC Distribution Width 16.3 % (11.5-14.5); Red Blood Cell (RBC) Count 4.19 mill/uL (4.20-5.40); White Blood Cell (WBC) Count 8.7 thou/uL (4.8-10.8)
[2019-01-05 05:12] LABS: Anion Gap 13 mmol/L (10-20); BUN (Urea Nitrogen) 30 mg/dL (9.8-20.1); Calc. Creatinine Clearance 30 mL/min (70-130); Calcium 9.6 mg/dL (7.8-10.44); Carbon Dioxide 22 mmol/L (23-31); Chloride 104 mmol/L (98-107); Estimated GFR-MDRD 26; Glucose 355 mg/dL (80-115); Potassium 3.7 mmol/L (3.5-5.1); Sodium 135 mmol/L (136-145)
[2019-01-05] MEDS: Bisacodyl 5 MG TAB PO PRN (05:39)
[2019-01-05] MEDS: Furosemide 20 MG/2 ML VIAL SLOW IVP SCH ×2 (05:39→13:44)
[2019-01-05] MEDS: HumaLOG 300 UNITS/3 ML VIAL SC PRN ×3 (05:47→17:10)
[2019-01-05 07:46] LABS: Amphetamine Not Detected (NotDetected); Barbiturates Screen Not Detected (NotDetected); Benzodiazepine Screen Not Detected (NotDetected); Cocaine Metabolite Screen Not Detected (NotDetected); Medtox Control Line Valid? VALID (VALID); Medtox Reader # READER 4; Methadone Not Detected (NotDetected); Methamphetamine Not Detected (NotDetected); Opiate Screen Not Detected (NotDetected); Oxycodone Screen Not Detected (NotDetected); Phencyclidine (PCP) Not Detected (NotDetected); THC/Cannabinoid Screen Not Detected (NotDetected); Tricyclic Screen Not Detected (NotDetected)
[2019-01-05] MEDS ORDERED: Carvedilol 25 MG TAB PO SCH (08:00)
[2019-01-05] MEDS: hydrALAZINE 25 MG TAB PO SCH ×3 (08:59→21:04)
[2019-01-05] MEDS: Acetaminophen 325 MG TAB PO PRN ×2 (08:59→17:09)
[2019-01-05] MEDS ORDERED: NIFEdipine XL 60 MG TAB PO SCH (09:00)
[2019-01-05] MEDS: Isosorbide Dinitrate 20 MG TAB PO SCH ×2 (09:00→21:05)
[2019-01-05] MEDS: Lisinopril 10 MG TAB PO SCH (09:00)
[2019-01-05] MEDS: traMADol HCl 50 MG TAB PO PRN ×2 (11:33→18:25)
[2019-01-05] MEDS: Ondansetron PF 4 MG/2 ML Vial IVP PRN ×2 (13:44→22:44)
--- NOTE | 2019-01-05 15:11 | PDOC.PN ---
- Subjective Encounter Start Date: 01/05/19 Encounter Start Time: 08:00 Pt seen for followup re: hypertensive urgency. c/o pain all over and headache. - Objective Vital Signs & Weight: Vital Signs (12 hours) Temp Pulse Pulse Pulse Resp BP BP 01/05/19 11:57 98.4 F 97 18 01/05/19 10:45 100 119 H 155/95 H 01/05/19 10:22 91 139/89 01/05/19 09:00 172/103 H 01/05/19 08:59 105 H 172/103 H 01/05/19 08:00 98.2 F 105 H 20 01/05/19 04:00 98.1 F 92 22 H BP BP Pulse Ox Pulse Ox Pulse Ox 01/05/19 11:57 160/98 H 98 01/05/19 10:45 189/104 H 99 100 01/05/19 10:22 01/05/19 09:00 01/05/19 08:59 01/05/19 08:00 172/103 H 99 01/05/19 04:00 169/95 H 99 Weight Weight 166 lb 8 oz I&O: 01/04/19 01/05/19 01/06/19 06:59 06:59 06:59 Intake Total 750 480 Balance 750 480 Result Diagrams: 01/05/19 04:34 01/05/19 04:34 Additional Labs: Accuchecks 01/05/19 01/04/19 11:11 21:04 POC Glucose 328 H 293 H Phys Exam - Physical Examination HEENT: moist MMs Neck: supple Respiratory: clear to auscultation bilateral Cardiovascular: RRR Gastrointestinal: soft Musculoskeletal: edema present Neurological: moves all 4 limbs Psychiatric: normal affect Dx/Plan (1) Hypertensive urgency Code(s): I16.0 - HYPERTENSIVE URGENCY Status: Acute Comment: BP still high, will obtain cardiology input. (2) DM2 (diabetes mellitus, type 2) Status: Chronic Comment: sugars high, switch to moderate sliding scale (3) CKD (chronic kidney disease) stage 4, GFR 15-29 ml/min Code(s): N18.4 - CHRONIC KIDNEY DISEASE, STAGE 4 (SEVERE) Status: Chronic Comment: creatinine worse today, recheck AM labs - Plan * . Review of Systems - Review of Systems Cardiovascular: negative: chest pain, palpitations, orthopnea, paroxysmal nocturnal dyspnea, edema, light headedness Gastrointestinal: negative: Nausea, Vomiting, Abdominal Pain, Diarrhea, Constipation, Melena, Hematochezia - Medications/Allergies Allergies/Adverse Reactions: Allergies Allergy/AdvReac Type Severity Reaction Status Date / Time Penicillins Allergy Verified 01/04/19 20:07 Medications: Current Medications Acetaminophen (Tylenol) 650 mg PO Q4H PRN PRN Reason: Headache/Fever/Mild Pain (1-3) Last Admin: 01/05/19 08:59 Dose: 650 mg Bisacodyl (Dulcolax) 10 mg PO DAILYPRN PRN PRN Reason: Constipation Last Admin: 01/05/19 05:39 Dose: 10 mg Carvedilol (Coreg) 25 mg PO TID [facility] Clonidine (Zigneseg-Uge-2) 0.2 mg TD Q7D@2100 [facility] Last Admin: 01/04/19 20:59 Dose: 0.2 mg Dextrose/Water (Dextrose 50%) 25 gm SLOW IVP PRN PRN PRN Reason: Hypoglycemia Furosemide (Lasix) 40 mg PO DAILY-[facility] Glucagon (Glucagon) 1 mg IM PRN PRN PRN Reason: Hypoglycemia Hydralazine HCl (Apresoline) 10 mg SLOW IVP Q6H PRN PRN Reason: SBP Greater Than 170 Hydralazine HCl (Apresoline) 100 mg PO TID [facility] Last Admin: 01/05/19 08:59 Dose: 100 mg Dextrose/Water (D5w) 1,000 mls @ 0 mls/hr IV .Q0M PRN PRN Reason: Hypoglycemia Insulin Human Lispro (Humalog) 0 units SC .MILD SLIDING SCALE PRN PRN Reason: Mild Correctional Scale Last Admin: 01/05/19 11:33 Dose: 5 units Isosorbide Dinitrate (Isordil) 40 mg PO BID [facility] Last Admin: 01/05/19 09:00 Dose: 40 mg Labetalol HCl (Normodyne) 10 mg SLOW IVP Q8H PRN PRN Reason: SBP Greater Than 180 Lisinopril (Zestril) 10 mg PO DAILY [facility] Last Admin: 01/05/19 09:00 Dose: 10 mg Ondansetron HCl (Zofran) 4 mg IVP Q6H PRN PRN Reason: Nausea/Vomiting Last Admin: 01/05/19 13:44 Dose: 4 mg Sodium Chloride (Flush - Normal Saline) 10 ml IVF Q12HR [facility] Sodium Chloride (Flush - Normal Saline) 10 ml IVF PRN PRN PRN Reason: Saline Flush Tramadol HCl (Ultram) 50 mg PO Q6H PRN PRN Reason: Pain Last Admin: 01/05/19 11:33 Dose: 50 mg
[2019-01-05] MEDS: Carvedilol 25 MG TAB PO SCH ×2 (15:24→21:05)
--- NOTE | 2019-01-05 20:36 | CON ---
DATE OF CONSULTATION: HISTORY: This is a 63-year-old black female, who I initially evaluated in July 2018. She was here previously in December 2013 with an ejection fraction of 55% to 60% and left ventricular hypertrophy. She also had a chest CT, which revealed aneurysmal dilatation of the aortic arch, but no dissection. She was discharged on diabetes, blood pressure, and hypercholesterolemic medications. When she presented in July 2018, she was not really taking any blood pressure medication. She started to notice increasing exertional dyspnea as well as have chest pressure at rest or with exertion and this would last most of the day. Echo revealed ejection fraction of 20% to 25% with moderate left atrial enlargement, moderate mitral regurgitation, mild aortic regurgitation, and iqir-ct-hqczjdop tricuspid regurgitation. Creatinine was 2.08. BNP was 2061.9. She was placed on carvedilol, furosemide, Apresoline, and Isordil. She underwent cardiac catheterization using 24 mL of contrast. There was a 30% proximal LAD, 30% mid LAD, 20% mid circumflex, and 20% proximal RCA. She has since been followed in the [facility]. She has not had a repeat echocardiogram since the one in July,. She now is admitted with increasingly itmcwqsxn-zi-hndtgtl blood pressure. She complained of dizziness and blurred vision as well as constant chest pressure and mild shortness of breath. PAST MEDICAL HISTORY: Hypertension, diabetes, hyperlipidemia, nonischemic cardiomyopathy, aortic aneurysm, and medical noncompliance. PAST SURGICAL HISTORY: . MEDICATIONS: 1. Isosorbide dinitrate 40 t.i.d. 2. Hydralazine 100 mg t.i.d. 3. Furosemide 10 mg daily. 4. Carvedilol 25 mg b.i.d. 5. Atorvastatin 10 daily. 6. Clonidine 0.2 mg daily. 7. Novolin 70/30. 8. Aspirin 81. 9. Lisinopril 10 mg daily. ALLERGIES: PENICILLIN. SOCIAL HISTORY: She smoked many years ago. She does not smoke or drink at the present time. FAMILY HISTORY: Negative for coronary artery disease. REVIEW OF SYSTEMS: A 10-point review of systems is otherwise unremarkable. PHYSICAL EXAMINATION: VITAL SIGNS: Blood pressure when she was admitted on the floor was 180/110, at the present time is 160/98, and pulse of 97. HEENT: PERRL. NECK: Supple. CHEST: Clear. CARDIAC: S1 and S2 normal. ABDOMEN: Normal bowel sounds without tenderness or organomegaly. EXTREMITIES: No clubbing, cyanosis or edema. NEUROLOGIC: Grossly intact. SKIN: Warm and dry. DIAGNOSTIC DATA: EKG revealed normal sinus rhythm with nonspecific ST- and T- wave changes. Echocardiogram revealed mild concentric left ventricular hypertrophy, ejection fraction of 45% to 50%, mild mitral regurgitation, mild tricuspid regurgitation, and mild pulmonic regurgitation. Chest x-ray revealed no acute process. LABORATORY DATA: Hemoglobin 11.1, hematocrit 33.5, white count 8700, and platelets 116,000. Sodium 135, potassium 3.7, chloride 104, carbon dioxide 22, BUN 30, and creatinine 2.31 up from 1.94 on admission. BNP 291. Troponin I 0.039. IMPRESSION: 1. Lhaqxdigw-xy-vnwkdft hypertension. 2. Nonischemic cardiomyopathy, which has improved dramatically from ejection fraction of 20% to 25% in July 2018 to 45% to 50% present time. 3. Chronic kidney disease. 4. Hypercholesterolemia. 5. Diabetes. 6. Distant smoker. 7. Obesity. 8. Mild coronary artery disease on catheterization of July 2018. PLAN: She does not appear to be significantly volume overloaded at this time and her creatinine has increased. I will go back to the 40 mg of furosemide p.o. and discontinue the IV. She continues to remain fairly tachycardic with heart rates in the 90s. I would increase the carvedilol to 25 mg t.i.d. and may ultimately need to be increased to 50 b.i.d. Her creatinine will need to be monitored on a daily basis. Job ID: [id number] [facility]
[2019-01-06] MEDS ORDERED: Promethazine HCl 25 MG/ML VIAL IM/IV SCH (01:30)
[2019-01-06] MEDS: Acetaminophen 325 MG TAB PO PRN (03:52)
[2019-01-06 04:59] LABS: Anion Gap 17 mmol/L (10-20); BUN (Urea Nitrogen) 32 mg/dL (9.8-20.1); Calc. Creatinine Clearance 27 mL/min (70-130); Carbon Dioxide 23 mmol/L (23-31); Chloride 100 mmol/L (98-107); Estimated GFR-MDRD 23; Glucose 304 mg/dL (80-115); Potassium 3.7 mmol/L (3.5-5.1); Sodium 136 mmol/L (136-145)
[2019-01-06] MEDS ORDERED: Nitroglycerin 0.4 MG TAB (25 Tab Bottle) SL PRN (06:29)
[2019-01-06] MEDS: HumaLOG 300 UNITS/3 ML VIAL SC PRN ×3 (06:31→17:32)
[2019-01-06] MEDS: traMADol HCl 50 MG TAB PO PRN (06:32)
[2019-01-06] MEDS: Furosemide 40 MG TAB PO SCH (08:06)
[2019-01-06] MEDS: Carvedilol 25 MG TAB PO SCH ×3 (08:06→20:49)
[2019-01-06] MEDS: Isosorbide Dinitrate 20 MG TAB PO SCH ×2 (08:06→20:49)
[2019-01-06] MEDS: Lisinopril 10 MG TAB PO SCH (08:06)
[2019-01-06] MEDS: hydrALAZINE 25 MG TAB PO SCH ×3 (08:06→23:36)
[2019-01-06] MEDS ORDERED: Acetaminophen/Codeine 30-300mg Tablet PO PRN (08:47)
--- NOTE | 2019-01-06 09:35 | CT ---
CT BRAIN WITHOUT CONTRAST: HISTORY: Intractable headache. COMPARISON: 03/08/2015 FINDINGS: No evidence of infarct, hemorrhage, midline shift, abnormal extraaxial fluid collections is seen. Th e ventricular size is appropriate, and the basilar cisterns are patent. The bony calvarium is intact . The visualized paranasal sinuses and mastoid air cells are well aerated. IMPRESSION: No CT evidence of acute intracranial process. POS: [facility]
[2019-01-06] MEDS: Acetaminophen/Codeine 30-300mg Tablet PO PRN (09:47)
--- NOTE | 2019-01-06 14:25 | DIS ---
DATE OF ADMISSION: 01/04/2019 DATE OF DISCHARGE: 01/06/2019 PRIMARY CARE PROVIDER: VELVET Bowden DISCHARGE DIAGNOSES: 1. Hypertensive urgency. 2. Nonischemic cardiomyopathy. CONDITION OF THE PATIENT ON THE DAY OF DISCHARGE: Stable. I assessed Ms. Barrera on the day of discharge. She denies any chest pain or shortness of breath. Vital signs are stable. S1 and S2 are heard, regular. Lungs are clear to auscultation bilaterally. CONSULTATIONS DURING THIS HOSPITALIZATION: Cardiology, Dr. Redman. DISCHARGE MEDICATIONS: 1. Hydralazine 100 mg 3 times a day. 2. Isosorbide dinitrate 40 mg 3 times a day. 3. Lisinopril 10 mg daily. 4. Aspirin 81 mg daily. 5. Lipitor 10 mg at bedtime. 6. Coreg 25 mg 3 times a day. 7. Lasix 40 mg daily. 8. Novolin 70/30 insulin, 8 units 2 times a day. HOSPITAL COURSE: Ms. Barrera is a pleasant 63-year-old lady who was admitted to [facility] on January 06, 2019, for hypertensive urgency. Please refer to my history and physical note dated January 04, 2019, for further details. She was seen by Cardiology Service. Her Coreg dose was increased, with improvement in her blood pressures. She may need further increase in her Coreg dose. She has been advised to check her blood pressure and heart rate 3 times a day and show the readings to her primary care provider. She also complained of headache. Noncontrast CT scan of the brain did not show any acute intracranial abnormality. Many thanks for allowing me to participate in your patient's care. Please feel free to contact me with any questions or concerns. DISCHARGE DESTINATION: Home. FOLLOWUP APPOINTMENTS: With primary care provider in 3 days' time. Job ID: [id number] [facility]
[2019-01-06 16:11] LABS: Anion Gap 17 mmol/L (10-20); BUN (Urea Nitrogen) 37 mg/dL (9.8-20.1); Calc. Creatinine Clearance 21 mL/min (70-130); Calcium 10.6 mg/dL (7.8-10.44); Carbon Dioxide 27 mmol/L (23-31); Chloride 99 mmol/L (98-107); Estimated GFR-MDRD 18; Glucose 236 mg/dL (80-115); Potassium 3.6 mmol/L (3.5-5.1); Sodium 139 mmol/L (136-145)
--- NOTE | 2019-01-06 18:29 | PDOC.PN ---
- Subjective Encounter Start Date: 01/06/19 Encounter Start Time: 18:27 Pt seen for acute on chronic renal failure. Had headache earlier, feels better now. - Objective MAR Reviewed: Yes Vital Signs & Weight: Vital Signs (12 hours) Temp Pulse Pulse Pulse Resp BP BP 01/06/19 16:15 93 137/78 01/06/19 15:33 99 F 93 18 01/06/19 12:15 98.7 F 97 16 01/06/19 09:33 105 H 98 161/89 H 01/06/19 08:06 99 145/86 H 01/06/19 07:41 98.6 F 99 16 BP BP Pulse Ox Pulse Ox Pulse Ox 01/06/19 16:15 01/06/19 15:33 137/78 97 01/06/19 12:15 121/94 H 98 01/06/19 09:33 135/78 100 98 01/06/19 08:06 01/06/19 07:41 145/86 H 97 Weight Weight 165 lb 8 oz I&O: 01/05/19 01/06/19 01/07/19 06:59 06:59 06:59 Intake Total 750 2974 Output Total 1200 Balance 750 1774 Result Diagrams: 01/05/19 04:34 01/06/19 15:53 Additional Labs: Accuchecks 01/06/19 01/06/19 01/06/19 16:39 10:45 06:15 POC Glucose 244 H 251 H 298 H 01/05/19 20:39 POC Glucose 220 H EKG Reviewed by me: Yes (Tele: NSR) Phys Exam - Physical Examination Constitutional: NAD HEENT: moist MMs Neck: supple Respiratory: clear to auscultation bilateral Cardiovascular: RRR Gastrointestinal: soft Neurological: moves all 4 limbs Psychiatric: normal affect Dx/Plan (1) Acute worsening of stage 3 chronic kidney disease Code(s): N18.3 - CHRONIC KIDNEY DISEASE, STAGE 3 (MODERATE) Status: Acute Comment: hold lisinopril. Recheck creatinine. Furosemide switched to oral. (2) Hypertensive urgency Code(s): I16.0 - HYPERTENSIVE URGENCY Status: Acute Comment: BP improved (3) DM2 (diabetes mellitus, type 2) Status: Chronic Comment: sugars high, switch to aggressive sliding scale (4) CKD (chronic kidney disease) stage 4, GFR 15-29 ml/min Code(s): N18.4 - CHRONIC KIDNEY DISEASE, STAGE 4 (SEVERE) Status: Chronic Comment: creatinine worse today, recheck AM labs - Plan * . Review of Systems - Review of Systems Respiratory: negative: Cough, Dry, Shortness of Breath, Hemoptysis, SOB with Excertion, Pleuritic Pain, Sputum Cardiovascular: negative: chest pain, palpitations, orthopnea, paroxysmal nocturnal dyspnea, edema, light headedness - Medications/Allergies Allergies/Adverse Reactions: Allergies Allergy/AdvReac Type Severity Reaction Status Date / Time Penicillins Allergy Verified 01/04/19 20:07 Medications: Current Medications Acetaminophen (Tylenol) 650 mg PO Q4H PRN PRN Reason: Headache/Fever/Mild Pain (1-3) Last Admin: 01/06/19 03:52 Dose: 650 mg Acetaminophen/Codeine Phosphate (Tylenol #3) 1 tab PO Q6H PRN PRN Reason: Mild Pain (1-3) Acetaminophen/Codeine Phosphate (Tylenol #3) 2 tab PO Q6H PRN PRN Reason: Moderate Pain (4-6) Last Admin: 01/06/19 09:47 Dose: 2 tab Bisacodyl (Dulcolax) 10 mg PO DAILYPRN PRN PRN Reason: Constipation Last Admin: 01/05/19 05:39 Dose: 10 mg Carvedilol (Coreg) 25 mg PO TID [facility] Last Admin: 01/06/19 16:15 Dose: 25 mg Clonidine (Wjxxsrhl-Aft-9) 0.2 mg TD Q7D@2100 [facility] Last Admin: 01/04/19 20:59 Dose: 0.2 mg Dextrose/Water (Dextrose 50%) 25 gm SLOW IVP PRN PRN PRN Reason: Hypoglycemia Furosemide (Lasix) 40 mg PO DAILY-[facility] Last Admin: 01/06/19 08:06 Dose: 40 mg Glucagon (Glucagon) 1 mg IM PRN PRN PRN Reason: Hypoglycemia Hydralazine HCl (Apresoline) 10 mg SLOW IVP Q6H PRN PRN Reason: SBP Greater Than 170 Last Admin: 01/06/19 00:11 Dose: 10 mg Hydralazine HCl (Apresoline) 100 mg PO TID [facility] Last Admin: 01/06/19 16:15 Dose: 100 mg Dextrose/Water (D5w) 1,000 mls @ 0 mls/hr IV .Q0M PRN PRN Reason: Hypoglycemia Insulin Human Lispro (Humalog) 0 units SC .MODERATE SLIDING SC PRN PRN Reason: Moderate Correctional Scale Last Admin: 01/06/19 17:32 Dose: 4 unit Isosorbide Dinitrate (Isordil) 40 mg PO BID [facility] Last Admin: 01/06/19 08:06 Dose: 40 mg Labetalol HCl (Normodyne) 10 mg SLOW IVP Q8H PRN PRN Reason: SBP Greater Than 180 Nitroglycerin (Nitrostat) 0.4 mg SL Q5MIN PRN PRN Reason: Chest Pain Ondansetron HCl (Zofran) 4 mg IVP Q6H PRN PRN Reason: Nausea/Vomiting Last Admin: 01/05/19 22:44 Dose: 4 mg Sodium Chloride (Flush - Normal Saline) 10 ml IVF Q12HR [facility] Last Admin: 01/06/19 08:07 Dose: 10 ml Sodium Chloride (Flush - Normal Saline) 10 ml IVF PRN PRN PRN Reason: Saline Flush Last Admin: 01/05/19 22:44 Dose: 10 ml Tramadol HCl (Ultram) 50 mg PO Q6H PRN PRN Reason: Pain Last Admin: 01/06/19 06:32 Dose: 50 mg
[2019-01-06] MEDS: Bisacodyl 5 MG TAB PO PRN (20:51)
[2019-01-06] MEDS: Albumin 25% 25 GM/100 ML BOT IVPB SCH (22:35)
--- NOTE | 2019-01-06 22:58 | CON ---
DATE OF CONSULTATION: HISTORY OF PRESENT ILLNESS: Ms. Barrera is a 63-year-old black female, who was admitted due to labile hypertension. During this hospitalization, she was noted to have worsened her creatinine. She has underlying chronic renal failure and the creatinine on admission was noted at about 2.31, and in the last 2 days it is worsened to a most recent value of 3.18. For this reason, renal consult has been done. REVIEW OF SYSTEMS: Occasional headache. No chest pain. Positive for on and off shortness of breath. No chest pain. No diarrhea. No constipation. Appetite and energy level are fair. No productive cough. No syncopal episode. No fever or chills. No gross hematuria. No dysuria. No urinary frequency. No abdominal pain. Occasional joint pains. No new skin rash. No sore throat. MEDICATIONS: The patient is currently on 1. Acetaminophen with codeine q.6 p.r.n. 2. Dulcolax 10 mg daily p.r.n. 3. Carvedilol 25 mg p.o. t.i.d. 4. Clonidine patch TTS-2 weekly. 5. Furosemide 40 mg daily. 6. Hydralazine 100 mg p.o. t.i.d. 7. Isordil 40 mg p.o. b.i.d. 8. Lisinopril 10 mg tablet once a day-on hold. 9. Tramadol 50 mg q.6 p.r.n. PAST MEDICAL HISTORY: 1. History of cardiomyopathy. 2. Hypertension. 3. Type 2 diabetes mellitus. 4. Status post CHF. PAST SURGICAL HISTORY: The patient is status post section, status post cardiac cath. SOCIAL HISTORY: The patient is single, lives with a friend. She lives in [place]. Two children. She is a retired home health caregiver. Education, high school. Smoked for 20 years, 1 pack a day-currently not smoking. No alcohol. No IV drug abuse. Denies any blood transfusion. ALLERGIES: PENICILLIN. TRAUMA: None. IMMUNIZATION: Up-to-date. HOSPITALIZATIONS: Please see past medical history. FAMILY HISTORY: No family history of ESRD. PHYSICAL EXAMINATION: VITAL SIGNS: Blood pressure 123/85, heart rate 99, respiratory rate 12, temperature 99, and pulse ox 98%. GENERAL: Noted to be awake, alert, comfortable, not in overt distress. SKIN: Adequate turgor. HEENT: She has pinkish conjunctivae. Anicteric sclerae. No neck mass. No carotid bruits. No JVD. CHEST: No deformities. LUNGS: Clear breath sounds. HEART: Normal sinus rhythm. No murmurs, no gallops, no rubs. ABDOMEN: Globular, soft, nontender. No masses. EXTREMITIES: No edema. No deformities. LABORATORY DATA: Laboratories of January 06, 2019, sodium 139, potassium 3.6, chloride 99, carbon dioxide 27, BUN 37, creatinine 3.18, glucose 236, calcium is 10.6. January 06, 2019, 4:01 a.m., creatinine 2.56. January 05, 2019, creatinine 2.31. January 04, 2019, creatinine 1.94. CT scan of the brain, January 06, 2019-for headache-no acute intracranial abnormality. January 04, 2019, chest x-ray shows no acute process. Urinalysis of August 01, 2018, shows a protein of 100. ASSESSMENT AND PLAN: 1. Acute kidney injury on top of her chronic renal failure-consider hemodynamically mediated renal dysfunction. The patient has been on diuretics. In addition, has been on URVASHI inhibitor. Her lisinopril has now been discontinued. I would probably currently leave the current diuretic regimen. But however, I will give her albumin infusion 25 g IV q.6 for 4 doses. There is no indication for any dialytic intervention. 2. Chronic renal failure-with a longstanding history of diabetes mellitus of at least 19 years and finding of proteinuria in the previous urinalysis, consider the possibility of diabetic nephropathy. Management is supportive. 3. Congestive heart failure-currently asymptomatic. Chest. 4. We will be rechecking a basic metabolic panel, CBC in a.m. Job ID: [id number]
[2019-01-07] MEDS: Albumin 25% 25 GM/100 ML BOT IVPB SCH ×4 (04:32→20:52)
[2019-01-07 04:44] LABS: Bilirubin Negative (Negative); Blood, Urine Negative (Negative); Clarity Turbid (Clear); Glucose, Urine (Dipstick) 30 mg/dL (Negative); Leukocyte 500 Leu/uL (Negative); Mucous/LPF Rare LPF (<2+); Nitrite Negative (Negative); Protein, Urine (Dipstick) 100 mg/dL (Neg-Trace)
[2019-01-07 04:45] LABS: Bacteria/HPF 1+ HPF (None Seen)
[2019-01-07 04:59] LABS: Creatinine, Urine 213.78 mg/dL (47-110)
[2019-01-07 05:39] LABS: Anion Gap 16 mmol/L (10-20); BUN (Urea Nitrogen) 41 mg/dL (9.8-20.1); Calc. Creatinine Clearance 19 mL/min (70-130); Calcium 9.8 mg/dL (7.8-10.44); Carbon Dioxide 29 mmol/L (23-31); Chloride 96 mmol/L (98-107); Estimated GFR-MDRD 16; Glucose 264 mg/dL (80-115); Potassium 3.6 mmol/L (3.5-5.1); Sodium 137 mmol/L (136-145)
[2019-01-07 05:58] LABS: Hep C IgG Ab Reflex HepC Qnt (NonReactive); Hep C Index 11.32 S/CO (0-0.79)
--- NOTE | 2019-01-07 08:08 | ULT ---
BILATERAL RENAL ULTRASOUND AND DOPPLER: HISTORY: Hypertension, renal failure FINDINGS: The right kidney measures 10.5 cm in length and the left kidney measures 10.5 cm in length. No hydron ephrosis seen on either side. There are cysts in the left kidney measuring up to 1.6 cm. The peak systolic velocity in the right renal artery measures 72 cm/s and the left renal artery measu res 55 cm/s with a renal artery to aortic ratios of 0.71 on the right and 0.54 on the left. The resistive indices measure 0.53 on both sides. IMPRESSION: 1. Left renal cysts 2. No evidence of hemodynamically significant renal artery stenosis.
[2019-01-07] MEDS ORDERED: Sodium Chloride 0.9% 1,000 ML IV SCH (08:15)
[2019-01-07] MEDS: Furosemide 40 MG TAB PO SCH (08:36)
[2019-01-07] MEDS: Carvedilol 25 MG TAB PO SCH ×3 (08:58→20:50)
[2019-01-07] MEDS: hydrALAZINE 25 MG TAB PO SCH ×3 (08:58→20:50)
[2019-01-07] MEDS: Isosorbide Dinitrate 20 MG TAB PO SCH ×2 (08:58→20:50)
[2019-01-07] MEDS: Sodium Chloride 0.9% 1,000 ML IV SCH (09:07)
--- NOTE | 2019-01-07 09:34 | PRG ---
DATE OF SERVICE: 01/07/2019 SUBJECTIVE: Ms. Barrera is a 63-year-old black female with history of cardiomyopathy, who was seen by the Renal Service for acute kidney injury on top of her chronic renal failure. She has a working diagnosis of diabetic nephropathy. She also had labile hypertension. No complaints today. No chest pain or shortness of breath. Recently, the diuretics has been placed on hold by her dining host. Please note, she is off her URVASHI inhibitor also. OBJECTIVE: VITAL SIGNS: Blood pressure 137/86, heart rate 103, respiratory rate 16, temperature 97.9, and pulse ox 94%. GENERAL: Awake, alert, sitting comfortable, not in distress. SKIN: Adequate turgor. HEENT: Pinkish conjunctivae. Anicteric sclerae. NECK: No neck mass. No carotid bruits. No JVD. CHEST: No deformities. LUNGS: Clear breath sounds. No wheezing. No crackles. HEART: Normal sinus rhythm. No murmur. No gallops. No rubs. ABDOMEN: Globular, soft, nontender. No masses. EXTREMITIES: No edema. No deformities. MEDICATIONS: Medications of January 07, 2019, was reviewed. LABORATORY DATA: Laboratories of January 07, 2019; sodium 137, potassium 3.6, chloride 96, carbon dioxide 29, BUN 41, creatinine 3.49, glucose 264, calcium 9.8. Hepatitis C antibody positive. Urinalysis of January 07, 2019, showed RBC 46, WBC 4 to 6, protein is 100. Urine protein is 112. Urine creatinine is 213. IMAGING STUDIES: Renal ultrasound with Doppler-no evidence of renal artery stenosis finding of renal disease. No obstruction noted. No masses. ASSESSMENT AND PLAN: 1. Acute kidney injury on top of her chronic renal failure-consider a superimposed hemodynamically-mediated renal dysfunction. Creatinine remains unimproved. Continue albumin infusion 25 g IV q.6. Lasix has been discontinued. Continue to hold off URVASHI inhibitor. 2. Proteinuria. This could be from diabetic nephropathy versus glomerulonephritis from an underlying chronic hepatitis C. This patient will need a GI referral for treatment of her chronic hepatitis C. This remains untreated. She needs to follow up with GI as an outpatient. 3. Cardiomyopathy-clinically asymptomatic. No evidence of volume overload. Recheck basic metabolic profile, CBC in a.m. Job ID: [id number]
[2019-01-07] MEDS: HumaLOG 300 UNITS/3 ML VIAL SC PRN ×2 (10:59→17:11)
--- NOTE | 2019-01-07 16:47 | PDOC.PN ---
- Subjective Encounter Start Date: 01/07/19 Encounter Start Time: 08:20 Pt seen for followup re: acute on chronic renal failure. Says she feels better. - Objective Vital Signs & Weight: Vital Signs (12 hours) Temp Pulse Pulse Pulse Resp BP BP 01/07/19 15:24 98.5 F 90 20 01/07/19 12:44 01/07/19 11:51 97.6 F 92 14 01/07/19 10:55 100 93 112/56 L 102/55 L 01/07/19 08:58 103 H 01/07/19 07:57 97.9 F 103 H 16 BP Pulse Ox Pulse Ox Pulse Ox 01/07/19 15:24 124/76 96 01/07/19 12:44 101/50 L 01/07/19 11:51 95 01/07/19 10:55 96 95 01/07/19 08:58 01/07/19 07:57 137/86 94 L Weight Weight 164 lb 6.4 oz I&O: 01/06/19 01/07/19 01/08/19 06:59 06:59 06:59 Intake Total 2974 1390 Output Total 1200 300 Balance 1774 1090 Result Diagrams: 01/05/19 04:34 01/07/19 04:57 Additional Labs: Accuchecks 01/07/19 01/06/19 01/06/19 10:42 20:44 16:39 POC Glucose 398 H 212 H 244 H Phys Exam - Physical Examination Constitutional: NAD HEENT: moist MMs Neck: supple Respiratory: clear to auscultation bilateral Cardiovascular: RRR Gastrointestinal: soft Neurological: moves all 4 limbs Psychiatric: normal affect Dx/Plan (1) Acute worsening of stage 3 chronic kidney disease Code(s): N18.3 - CHRONIC KIDNEY DISEASE, STAGE 3 (MODERATE) Status: Acute Comment: Cr worse today, furosemide stopped. Receiving IV albumin. (2) Hypertensive urgency Code(s): I16.0 - HYPERTENSIVE URGENCY Status: Acute Comment: BP improved (3) DM2 (diabetes mellitus, type 2) Status: Chronic Comment: Improved control - Plan * . Review of Systems - Review of Systems Respiratory: negative: Cough, Shortness of Breath, SOB with Excertion, Pleuritic Pain, Wheezing Cardiovascular: negative: chest pain, palpitations, orthopnea, paroxysmal nocturnal dyspnea, edema, light headedness - Medications/Allergies Allergies/Adverse Reactions: Allergies Allergy/AdvReac Type Severity Reaction Status Date / Time Penicillins Allergy Verified 01/04/19 20:07 Medications: Current Medications Acetaminophen (Tylenol) 650 mg PO Q4H PRN PRN Reason: Headache/Fever/Mild Pain (1-3) Last Admin: 01/06/19 03:52 Dose: 650 mg Acetaminophen/Codeine Phosphate (Tylenol #3) 1 tab PO Q6H PRN PRN Reason: Mild Pain (1-3) Acetaminophen/Codeine Phosphate (Tylenol #3) 2 tab PO Q6H PRN PRN Reason: Moderate Pain (4-6) Last Admin: 01/06/19 09:47 Dose: 2 tab Albumin Human (Albumin 25%) 25 gm IVPB 0400,1000,1600,2200 [facility] Stop: 01/08/19 16:01 Bisacodyl (Dulcolax) 10 mg PO DAILYPRN PRN PRN Reason: Constipation Last Admin: 01/06/19 20:51 Dose: 10 mg Carvedilol (Coreg) 25 mg PO TID [facility] Last Admin: 01/07/19 14:57 Dose: 25 mg Clonidine (Qrnvuomh-Mur-2) 0.2 mg TD Q7D@2100 [facility] Last Admin: 01/04/19 20:59 Dose: 0.2 mg Dextrose/Water (Dextrose 50%) 25 gm SLOW IVP PRN PRN PRN Reason: Hypoglycemia Glucagon (Glucagon) 1 mg IM PRN PRN PRN Reason: Hypoglycemia Hydralazine HCl (Apresoline) 10 mg SLOW IVP Q6H PRN PRN Reason: SBP Greater Than 170 Last Admin: 01/06/19 00:11 Dose: 10 mg Hydralazine HCl (Apresoline) 100 mg PO TID [facility] Last Admin: 01/07/19 14:57 Dose: Not Given Dextrose/Water (D5w) 1,000 mls @ 0 mls/hr IV .Q0M PRN PRN Reason: Hypoglycemia Sodium Chloride (Normal Saline 0.9%) 1,000 mls @ 50 mls/hr IV .Q20H [facility] Last Admin: 01/07/19 09:07 Dose: 1,000 mls Insulin Human Lispro (Humalog) 0 units SC .MODERATE SLIDING SC PRN PRN Reason: Moderate Correctional Scale Last Admin: 01/07/19 10:59 Dose: 10 unit Isosorbide Dinitrate (Isordil) 40 mg PO BID [facility] Last Admin: 01/07/19 08:58 Dose: 40 mg Labetalol HCl (Normodyne) 10 mg SLOW IVP Q8H PRN PRN Reason: SBP Greater Than 180 Nitroglycerin (Nitrostat) 0.4 mg SL Q5MIN PRN PRN Reason: Chest Pain Ondansetron HCl (Zofran) 4 mg IVP Q6H PRN PRN Reason: Nausea/Vomiting Last Admin: 01/05/19 22:44 Dose: 4 mg Sodium Chloride (Flush - Normal Saline) 10 ml IVF Q12HR [facility] Last Admin: 01/07/19 08:59 Dose: 10 ml Sodium Chloride (Flush - Normal Saline) 10 ml IVF PRN PRN PRN Reason: Saline Flush Last Admin: 01/07/19 04:33 Dose: 10 ml Tramadol HCl (Ultram) 50 mg PO Q6H PRN PRN Reason: Pain Last Admin: 01/06/19 06:32 Dose: 50 mg
[2019-01-08] MEDS: Sodium Chloride 0.9% 1,000 ML IV SCH ×2 (03:37→19:52)
[2019-01-08] MEDS: Albumin 25% 25 GM/100 ML BOT IVPB SCH ×3 (03:38→16:27)
[2019-01-08 07:30] LABS: Anion Gap 14 mmol/L (10-20); BUN (Urea Nitrogen) 44 mg/dL (9.8-20.1); Calc. Creatinine Clearance 22 mL/min (70-130); Calcium 10.1 mg/dL (7.8-10.44); Carbon Dioxide 28 mmol/L (23-31); Chloride 101 mmol/L (98-107); Estimated GFR-MDRD 18; Glucose 204 mg/dL (80-115); Potassium 3.5 mmol/L (3.5-5.1); Sodium 139 mmol/L (136-145)
[2019-01-08 07:36] LABS: Hemoglobin 9.4 g/dL (12.0-16.0); Mean Corpuscular HGB CONC 33.7 g/dL (32.0-36.0); Mean Corpuscular Hemoglobin 27.4 pg (27.0-31.0); Mean Corpuscular Volume 81.3 fL (78.0-98.0); Mean Platelet Volume 12.2 fL (7.4-10.4); Platelet Count 97 thou/uL (130-400); Red Blood Cell (RBC) Count 3.42 mill/uL (4.20-5.40); White Blood Cell (WBC) Count 6.7 thou/uL (4.8-10.8)
[2019-01-08 09:03] LABS: Band 1 % (5-11); Eosinophils 2 % (0-10); Lymphocytes 51 % (21-51); MDiff Complete? YES; Monocytes 4 % (0-10); Neutrophil 42 % (42-75); Platelet Morphology Comment Appears Decreased; Polychromasia SLIGHT = 2-3 cells (100X) (0-2/hpf)
[2019-01-08] MEDS: Acetaminophen/Codeine 30-300mg Tablet PO PRN (09:17)
[2019-01-08] MEDS: Isosorbide Dinitrate 20 MG TAB PO SCH ×2 (09:19→19:55)
[2019-01-08] MEDS: hydrALAZINE 25 MG TAB PO SCH ×3 (09:19→19:55)
[2019-01-08] MEDS: Carvedilol 25 MG TAB PO SCH ×3 (09:19→19:54)
--- NOTE | 2019-01-08 09:51 | PRG ---
DATE OF SERVICE: 01/08/2019 SERVICE: Renal Medicine. SUBJECTIVE: Ms. Barrera is a 63-year-old black female, seen by the Renal Service for acute kidney injury on top of her chronic renal failure. The diuretics were discontinued as well as URVASHI inhibitor due to the worsening renal dysfunction. She has received IV infusion in the past. No complaints of chest pain or shortness of breath. She does complain of some left abdominal pain. This was not associated with any dysuria, diarrhea, or constipation. OBJECTIVE: VITAL SIGNS: Blood pressure 141/74, heart rate 92, respiratory rate 18, temperature 98.4, and pulse ox 94%. GENERAL: Noted to be awake, alert, comfortable, not in distress. SKIN: Adequate turgor. HEENT: Pinkish conjunctivae. Anicteric sclerae. No neck mass. No carotid bruits. No JVD. CHEST: No deformities. LUNGS: Clear breath sounds. No wheezing. No crackles. HEART: Normal sinus rhythm. No murmurs. No gallops. No rubs. ABDOMEN: Globular, soft, and nontender. No masses. EXTREMITIES: No edema. No deformities. MEDICATIONS: Medications of January 08, 2019, were reviewed. LABORATORY DATA: Laboratories of January 08, 2019: White count 6.7, hemoglobin 9.4. Sodium 139, potassium 3.5, chloride 101, carbon dioxide 28, BUN 44, creatinine 3.08, glucose 204, and calcium 10.1. ASSESSMENT AND PLAN: 1. Acute kidney injury on top of her chronic renal failure, superimposed prerenal azotemia. Diuretics and URVASHI inhibitors have been hold, slightly improved creatinine from 3.49 to 3.08. Continue current management, no indication for any dialytic intervention. 2. Chronic renal failure secondary to diabetic nephropathy versus chronic glomerulonephritis from chronic hepatitis C. 3. Positive hepatitis C antibody - consider referring the patient for outpatient treatment with Gastroenterology. 4. Congestive heart failure, clinically asymptomatic. 5. Left flank pain. We will continue to observe. If persistent, we may need to treat her empirically for urinary tract infection. Job ID: [id number]
[2019-01-08] MEDS ORDERED: HumaLOG 300 UNITS/3 ML VIAL SC PRN (11:00)
[2019-01-08] MEDS ORDERED: NPH, Human Insulin Isophane 300 UNIT/3 ML VIAL SC SCH (11:30)
[2019-01-08] MEDS: HumaLOG 300 UNITS/3 ML VIAL SC PRN ×2 (11:33→17:28)
[2019-01-08] MEDS: traMADol HCl 50 MG TAB PO PRN (11:34)
[2019-01-08] MEDS: Polyethylene Glycol 3350 17 GM Packet PO PRN (13:26)
--- NOTE | 2019-01-08 18:50 | PRG ---
DATE OF SERVICE: 01/08/2019 SUBJECTIVE: The patient is a 63-year-old female with hypertension, diabetes mellitus type 2, dyslipidemia, and hypertensive heart disease, presented to the hospital 4 days ago with elevated blood pressure. Recent cardiac catheterization showed mild coronary artery disease. She was admitted to the telemetry unit with hypertensive urgency. She was started back on her home medications. An echocardiogram was performed that showed ejection fraction of 45% to 50% with mild tricuspid regurgitation, mild pulmonic regurgitation. She later developed acute kidney injury with creatinine of 3.49 from 1.94 on admission. She is currently being seen by Dr. Degroot. Renal ultrasound was negative for obstructive uropathy. She is currently getting IV fluids. REVIEW OF SYSTEMS: The patient denies any chest pain, shortness of breath, palpitations, fever, chills, or syncope. OBJECTIVE: VITAL SIGNS: Temperature 98.6, pulse rate of 90, respirations 20, blood pressure of 166/87, with O2 saturation 95% on room air. GENERAL: A 63-year-old female, in no apparent distress. LUNGS: Showed diminished air entry at bilateral bases with scattered rhonchi. HEART: S1 and S2 present, regular. No rubs or gallops. ABDOMEN: Soft. Bowel sounds present. EXTREMITIES: Trace edema in bilateral lower extremities. NEUROLOGIC: Grossly nonfocal. LABORATORY FINDINGS: creatinine 3.08, BUN 44. Hemoglobin 9.4 with hematocrit 27.8. Urine drug screen was negative. Hepatitis C antibody was positive. IMAGING STUDIES: Chest x-ray by my review on admission was negative for infiltrate. Telemetry monitoring showed sinus rhythm. IMPRESSION: 1. Hypertensive urgency. 2. Acute kidney injury on chronic kidney disease, stage 3. 3. Diabetes mellitus, type 2. 4. Hypertensive heart disease. 5. Mild coronary artery disease. 6. Chronic hepatitis C. 7. Nonischemic cardiomyopathy. 8. History of systolic heart failure with ejection fraction 20% to 25% in the past. Recent echo showed improvement. 9. Penicillin allergy. 10. Elevated troponin secondary to hypertensive urgency/type 2 myocardial infarction. 11. Chronic anemia. 12. Thrombocytopenia. PLAN: The patient will continue carvedilol 25 mg three times daily along with clonidine patch, hydralazine, and isosorbide dinitrate. We will add NPH 10 units b.i.d. Continue sliding scale. Recheck labs in a.m. Monitor platelets. Hepatitis C RNA is pending at this time. The patient was extensively counseled to be compliant with antihypertensives. We will continue gentle IV hydration. Plan was discussed with the patient. She stated understanding. Job ID: [id number]
[2019-01-08] MEDS: NPH, Human Insulin Isophane 300 UNIT/3 ML VIAL SC SCH (20:47)
[2019-01-09 05:44] LABS: #Eosinphils 0.1 thou/uL (0.0-0.7); #Monocytes 0.5 thou/uL (0.11-0.59); #Neutrophils 2.4 thou/uL (1.40-6.50); %Basophils 0.4 % (0.0-1.0); %Eosinophils 2.8 % (0.0-10.0); %Lymphocytes 39.4 % (21.0-51.0); %Monocytes 9.1 % (0.0-10.0); %Neutrophils 48.3 % (42.0-75.0); Hemoglobin 8.7 g/dL (12.0-16.0); Mean Corpuscular HGB CONC 32.2 g/dL (32.0-36.0); Mean Corpuscular Hemoglobin 26.8 pg (27.0-31.0); Mean Corpuscular Volume 83.2 fL (78.0-98.0); Mean Platelet Volume 12.1 fL (7.4-10.4); Platelet Count 96 thou/uL (130-400); RBC Distribution Width 16.3 % (11.5-14.5); Red Blood Cell (RBC) Count 3.24 mill/uL (4.20-5.40)
[2019-01-09 05:55] LABS: Anion Gap 14 mmol/L (10-20); BUN (Urea Nitrogen) 38 mg/dL (9.8-20.1); Calc. Creatinine Clearance 31 mL/min (70-130); Calcium 9.9 mg/dL (7.8-10.44); Carbon Dioxide 24 mmol/L (23-31); Chloride 104 mmol/L (98-107); Estimated GFR-MDRD 29; Glucose 270 mg/dL (80-115); Potassium 3.8 mmol/L (3.5-5.1); Sodium 138 mmol/L (136-145)
[2019-01-09] MEDS: Isosorbide Dinitrate 20 MG TAB PO SCH ×2 (09:06→21:16)
[2019-01-09] MEDS: Carvedilol 25 MG TAB PO SCH ×2 (09:07→16:09)
[2019-01-09] MEDS: HumaLOG 300 UNITS/3 ML VIAL SC PRN ×2 (09:07→16:10)
[2019-01-09] MEDS: hydrALAZINE 25 MG TAB PO SCH ×3 (09:07→21:16)
[2019-01-09] MEDS: NPH, Human Insulin Isophane 300 UNIT/3 ML VIAL SC SCH ×2 (10:35→21:17)
--- NOTE | 2019-01-09 10:40 | PRG ---
DATE OF SERVICE: SUBJECTIVE: Ms. Barrera is a 63-year-old black female seen by the Renal Service for acute kidney injury on top of her chronic renal failure. She has chronic renal failure either from diabetic nephropathy and/or chronic glomerulonephritis from her chronic hepatitis C. She also has significant history of CHF. Recently, the renal function was worsening. Her diuretics and URVASHI inhibitors have been placed on hold. She was started on gentle volume repletion. Renal function has not much improved. The most recent value of a creatinine of 2.1, which is near baseline. She voices no new complaints. She denies any chest pain or shortness of breath. OBJECTIVE: VITAL SIGNS: Blood pressure 140/75, heart rate 87, respiratory rate 18, temperature 98, and pulse ox 92%. GENERAL: Noted to be awake, alert, comfortable, not in overt distress. SKIN: Adequate turgor. HEENT: Pinkish conjunctivae. Anicteric sclerae. NECK: No neck mass. No carotid bruits. No JVD. CHEST: No deformities. LUNGS: Clear breath sounds. HEART: Normal sinus rhythm. No murmur. No gallops. No rubs. ABDOMEN: Globular, soft, nontender. No masses. EXTREMITIES: No edema. No deformities. MEDICATIONS: Medications on January 09, 2019 were reviewed. LABORATORY DATA: Laboratories of January 09, 2019; sodium 138, potassium 3.8, chloride 104, carbon dioxide 24, BUN 38, creatinine 2.11, glucose 270, calcium 9.9. White count 5, hemoglobin 8.7, hematocrit 27. ASSESSMENT AND PLAN: 1. Chronic renal failure/acute kidney injury - improving renal function. GFR is now near baseline. My bias is to discontinue the normal saline and resume back Lasix at 40 mg tablet once a day. 2. Congestive heart failure/cardiomyopathy. Resume Lasix 40 mg tablet once a day. 3. Anemia. We will proceed and check for stool culture for occult blood. 4. Acute kidney injury - superimposed hemodynamically-mediated renal dysfunction. No indication for any dialytic intervention. Recheck basic metabolic and CBC in a.m. Job ID: [id number]
[2019-01-09 11:09] LABS: HCV log10 6.294 (.); Hep C PCR-Quant 1970000 IU/mL (.)
--- NOTE | 2019-01-09 13:03 | EKG ---
Test Reason : HTN Blood Pressure : / mmHG Vent. Rate : 083 BPM Atrial Rate : 083 BPM P-R Int : 194 ms QRS Dur : 100 ms QT Int : 428 ms P-R-T Axes : 048 -07 107 degrees QTc Int : 502 ms Normal sinus rhythm Left atrial enlargement T wave abnormality, consider lateral ischemia Prolonged QT Abnormal ECG Left ventricular hypertrophy Confirmed by REYNA WALLACE, DANNY Salvador ([id number]), non linear editor SPARKLE CHO ([id number]) on 01/09/2019 1:03:36 PM Referred By: REYNA Confirmed By:DANNY ORELLANA MD
[2019-01-09] MEDS ORDERED: Senokot 8.6 MG TAB PO PRN (14:12)
[2019-01-09] MEDS: Polyethylene Glycol 3350 17 GM Packet PO PRN (16:10)
--- NOTE | 2019-01-09 19:13 | PDOC.PN ---
- Subjective Encounter Start Date: 01/09/19 Encounter Start Time: 15:30 Patient seen and examined for ALEC/HTN urgency. No CP/SOB or palpitations. No fever/chills. No new complaints. No overnight events - Objective MAR Reviewed: Yes Vital Signs & Weight: Vital Signs (12 hours) Temp Pulse Pulse Pulse Resp BP BP 01/09/19 15:29 98 F 88 18 01/09/19 11:17 98.1 F 70 18 01/09/19 09:50 79 85 183/93 H 165/88 H 01/09/19 07:25 98 F 87 18 BP BP Pulse Ox Pulse Ox Pulse Ox 01/09/19 15:29 171/98 H 92 L 01/09/19 11:17 143/82 H 95 01/09/19 09:50 93 L 93 L 01/09/19 07:25 140/75 92 L Weight Weight 158 lb 4.8 oz I&O: 01/08/19 01/09/19 01/10/19 06:59 06:59 06:59 Intake Total 400 1200 1150 Balance 400 1200 1150 Result Diagrams: 01/10/19 07:26 01/09/19 04:53 Additional Labs: Accuchecks 01/09/19 01/09/19 01/09/19 16:45 15:35 10:58 POC Glucose 294 H 237 H 119 H 01/09/19 01/09/19 01/08/19 09:07 05:23 20:21 POC Glucose 284 H 304 H 161 H EKG Reviewed by me: Yes (Tele SR) Phys Exam - Physical Examination Constitutional: NAD Respiratory: no wheezing, no rhonchi Cardiovascular: RRR, no rub Gastrointestinal: soft, non-tender, positive bowel sounds Musculoskeletal: no edema Neurological: moves all 4 limbs Dx/Plan - Plan DVT proph w/SCDs IMPRESSION: 1. Hypertensive urgency. 2. Acute kidney injury on chronic kidney disease, stage 3. 3. Diabetes mellitus, type 2. 4. Hypertensive heart disease. 5. Mild coronary artery disease. 6. Chronic hepatitis C. 7. Nonischemic cardiomyopathy. 8. History of systolic heart failure with ejection fraction 20% to 25% in the past. Recent echo showed improvement. 9. Penicillin allergy. 10. Elevated troponin secondary to hypertensive urgency/type 2 myocardial infarction. 11. Chronic anemia - prob due to CKD 12. Thrombocytopenia. PLAN: IVF dced Lasix restarted Cont Coreg Cont Clonidine Patch Cont Hydralazine/isosorbide dinitrate. Cont NPH 10 units BID with sliding scale. GI f/u as outpt for Hep C (Patient was not aware of Hep C - RNA was positive in 2013) AM labs Check Reti ct/iron profile in AM Review of Systems - Review of Systems Respiratory: negative: Cough, Dry, Shortness of Breath, Hemoptysis, SOB with Excertion, Pleuritic Pain, Sputum, Wheezing Cardiovascular: negative: chest pain, palpitations, orthopnea, paroxysmal nocturnal dyspnea, edema, light headedness, other Gastrointestinal: negative: Nausea, Vomiting, Abdominal Pain, Diarrhea, Constipation, Melena, Hematochezia, Other - Medications/Allergies Allergies/Adverse Reactions: Allergies Allergy/AdvReac Type Severity Reaction Status Date / Time Penicillins Allergy Verified 01/04/19 20:07 Medications: Current Medications Acetaminophen (Tylenol) 650 mg PO Q4H PRN PRN Reason: Headache/Fever/Mild Pain (1-3) Last Admin: 01/06/19 03:52 Dose: 650 mg Acetaminophen/Codeine Phosphate (Tylenol #3) 1 tab PO Q6H PRN PRN Reason: Mild Pain (1-3) Carvedilol (Coreg) 50 mg PO BID-[facility] Last Admin: 01/09/19 16:09 Dose: 50 mg Clonidine ([id number]) 0.2 mg TD Q7D@2100 [facility] Last Admin: 01/04/19 20:59 Dose: 0.2 mg Cyanocobalamin (Vitamin B-12) 1,000 mcg PO DAILY COUNT INCLUDES THE [facility] Dextrose/Water (Dextrose 50%) 25 gm SLOW IVP PRN PRN PRN Reason: Hypoglycemia Folic Acid (Folvite) 1 mg PO DAILY COUNT INCLUDES THE [facility] Furosemide (Lasix) 40 mg PO DAILY-AC COUNT INCLUDES THE [facility] Glucagon (Glucagon) 1 mg IM PRN PRN PRN Reason: Hypoglycemia Hydralazine HCl (Apresoline) 10 mg SLOW IVP Q6H PRN PRN Reason: SBP Greater Than 170 Last Admin: 01/06/19 00:11 Dose: 10 mg Hydralazine HCl (Apresoline) 100 mg PO TID [facility] Last Admin: 01/09/19 16:10 Dose: 100 mg Dextrose/Water (D5w) 1,000 mls @ 0 mls/hr IV .Q0M PRN PRN Reason: Hypoglycemia Insulin Human Lispro (Humalog) 0 units SC .MODERATE SLIDING SC PRN PRN Reason: Moderate Correctional Scale Last Admin: 01/09/19 16:10 Dose: 4 unit Insulin Human Lispro (Humalog) 0 units SC .BEDTIME SLIDING SC PRN PRN Reason: Bedtime Correctional Scale Insulin Human NPH (Humulin N) 10 unit SC BID [facility] Last Admin: 01/09/19 10:35 Dose: 10 unit Isosorbide Dinitrate (Isordil) 40 mg PO BID [facility] Last Admin: 01/09/19 09:06 Dose: 40 mg Labetalol HCl (Normodyne) 10 mg SLOW IVP Q8H PRN PRN Reason: SBP Greater Than 180 Nitroglycerin (Nitrostat) 0.4 mg SL Q5MIN PRN PRN Reason: Chest Pain Ondansetron HCl (Zofran) 4 mg IVP Q6H PRN PRN Reason: Nausea/Vomiting Last Admin: 01/05/19 22:44 Dose: 4 mg Polyethylene Glycol (Miralax) 17 gm PO DAILY PRN PRN Reason: Constipation Last Admin: 01/09/19 16:10 Dose: 17 gm Senna (Senokot) 2 tab PO HSPRN PRN PRN Reason: Constipation Sodium Chloride (Flush - Normal Saline) 10 ml IVF Q12HR [facility] Last Admin: 01/09/19 11:03 Dose: Not Given Sodium Chloride (Flush - Normal Saline) 10 ml IVF PRN PRN PRN Reason: Saline Flush Last Admin: 01/07/19 04:33 Dose: 10 ml Tramadol HCl (Ultram) 50 mg PO Q6H PRN PRN Reason: Pain Last Admin: 01/08/19 11:34 Dose: 50 mg
[2019-01-10] MEDS: traMADol HCl 50 MG TAB PO PRN ×2 (00:36→08:36)
[2019-01-10] MEDS ORDERED: Furosemide 40 MG TAB PO SCH (07:30)
[2019-01-10 07:40] LABS: #Basophils 0.1 thou/uL (0.0-0.2); #Eosinphils 0.2 thou/uL (0.0-0.7); #Lymphocytes 2.7 thou/uL (1.20-3.40); #Monocytes 0.5 thou/uL (0.11-0.59); %Basophils 1.2 % (0.0-1.0); %Eosinophils 3.3 % (0.0-10.0); %Lymphocytes 49.4 % (21.0-51.0); %Monocytes 9.6 % (0.0-10.0); %Neutrophils 36.6 % (42.0-75.0); Hemoglobin 9.9 g/dL (12.0-16.0); Mean Corpuscular HGB CONC 33.2 g/dL (32.0-36.0); Mean Corpuscular Hemoglobin 27.6 pg (27.0-31.0); Mean Corpuscular Volume 83.1 fL (78.0-98.0); Mean Platelet Volume 11.1 fL (7.4-10.4); Platelet Count 103 thou/uL (130-400); RBC Distribution Width 17.1 % (11.5-14.5); Red Blood Cell (RBC) Count 3.59 mill/uL (4.20-5.40); White Blood Cell (WBC) Count 5.4 thou/uL (4.8-10.8)
[2019-01-10 07:56] LABS: Anion Gap 12 mmol/L (10-20); BUN (Urea Nitrogen) 29 mg/dL (9.8-20.1); Calc. Creatinine Clearance 44 mL/min (70-130); Calcium 9.8 mg/dL (7.8-10.44); Carbon Dioxide 23 mmol/L (23-31); Chloride 107 mmol/L (98-107); Estimated GFR-MDRD 41; Glucose 212 mg/dL (80-115); Iron 34 ug/dL (50-170); Iron Binding Capacity, Total 339 mcg/dL (265-497); Potassium 3.4 mmol/L (3.5-5.1); Sodium 139 mmol/L (136-145)
[2019-01-10] MEDS ORDERED: Potassium Chloride 20 MEQ TAB PO SCH ×2 (08:00→08:30)
[2019-01-10] MEDS: Isosorbide Dinitrate 20 MG TAB PO SCH ×2 (08:35→20:40)
[2019-01-10] MEDS: Carvedilol 25 MG TAB PO SCH ×2 (08:35→16:20)
[2019-01-10] MEDS: Folic Acid 1 MG TAB PO SCH (08:35)
[2019-01-10] MEDS: Cyanocobalamin (Vitamin B-12) 1,000 MCG TAB PO SCH (08:35)
[2019-01-10] MEDS: Furosemide 40 MG TAB PO SCH (08:36)
[2019-01-10] MEDS: hydrALAZINE 25 MG TAB PO SCH ×3 (08:37→20:39)
[2019-01-10] MEDS: NPH, Human Insulin Isophane 300 UNIT/3 ML VIAL SC SCH ×2 (08:38→20:42)
--- NOTE | 2019-01-10 09:44 | PRG ---
DATE OF SERVICE: 01/10/2019 SUBJECTIVE: Ms. Barrera is a 63-year-old black female, who was seen by the Renal Service for her acute kidney injury on top of her chronic renal failure. Adjustment with diuretics was made. Due to the much improve creatinine, we resumed back her Lasix at 40 mg once a day. She denies any chest pain or shortness of breath. OBJECTIVE: VITAL SIGNS: Blood pressure 173/92, heart rate 84, respiratory rate 17, temperature 98.6, and pulse ox 95%. GENERAL: Awake, alert, sitting comfortable, not in distress. SKIN: Adequate turgor. HEENT: She has slightly pale conjunctivae. Anicteric sclerae. NECK: No neck mass. No carotid bruits. No JVD. CHEST: No deformities. LUNGS: Clear breath sounds. No wheezing. No crackles. HEART: Normal sinus rhythm. No murmurs, no gallops, no rubs. ABDOMEN: Globular, soft, nontender. No masses. EXTREMITIES: No edema. No deformities. MEDICATIONS: Medications of January 10, 2019, were reviewed. LABORATORY DATA: Laboratories of January 10, 2019: White count 5.4, hemoglobin 9.9. Sodium 139, potassium 3.4, chloride 107, carbon dioxide 23, BUN 29, creatinine 1.56, glucose 212. Iron 34, TIBC 339. ASSESSMENT AND PLAN: 1. Acute kidney injury/chronic renal failure. Stable renal function, much improved creatinine with adjustment of diuretics. Continue current management. Continue current diuretic regimen. No indication for any dialytic intervention. 2. Cardiomyopathy, congestive heart failure, asymptomatic. Continuing Lasix. From a renal point of view, this patient can be discharge any time. Job ID: [id number]
[2019-01-10] MEDS: HumaLOG 300 UNITS/3 ML VIAL SC PRN ×2 (10:35→15:36)
[2019-01-10] MEDS ORDERED: cloNIDine 0.1 MG TAB PO PRN (11:21)
--- NOTE | 2019-01-10 15:12 | PDOC.PN ---
- Subjective Encounter Start Date: 01/10/19 Encounter Start Time: 10:30 Patient seen and examined for HTN crisis. No CP. No new complaints. No overnight events - Objective MAR Reviewed: Yes Vital Signs & Weight: Vital Signs (12 hours) Temp Pulse Pulse Pulse Resp BP BP 01/10/19 14:08 79 152/87 H 01/10/19 11:01 97.8 F 79 17 01/10/19 10:46 87 96 193/112 H 01/10/19 07:00 98.6 F 84 17 01/10/19 04:00 98.1 F 94 18 BP BP BP Pulse Ox Pulse Ox 01/10/19 14:08 01/10/19 11:01 156/95 H 99 01/10/19 10:46 186/102 H 95 01/10/19 07:00 173/92 H 95 01/10/19 04:00 180/95 H 92 L Weight Weight 165 lb I&O: 01/09/19 01/10/19 01/11/19 06:59 06:59 06:59 Intake Total 1200 1150 Balance 1200 1150 Result Diagrams: 01/10/19 07:26 01/10/19 07:26 Additional Labs: Accuchecks 01/10/19 01/10/19 01/10/19 14:15 10:36 05:35 POC Glucose 151 H 295 H 197 H 01/09/19 01/09/19 01/09/19 20:32 16:45 15:35 POC Glucose 321 H 294 H 237 H Microbiology 01/09/19 19:19 Stool - Formed Stool Occult Blood (BLAINE) - Final Laboratory Tests 01/07/19 01/10/19 01/10/19 05:50 07:26 07:26 Iron 34 L TIBC 339 Ferritin 16.64 HCV RNA (PCR) log10 6.294 HCV RNA Ultraquant [id number] EKG Reviewed by me: Yes (Tele SR) Phys Exam - Physical Examination Constitutional: NAD Respiratory: no wheezing, no rhonchi Cardiovascular: RRR, no rub Gastrointestinal: soft, non-tender, positive bowel sounds Musculoskeletal: no edema Neurological: moves all 4 limbs Dx/Plan - Plan DVT proph w/SCDs IMPRESSION: 1. Hypertensive urgency. BP still uncontrolled 2. Acute kidney injury on chronic kidney disease, stage 3. 3. Diabetes mellitus, type 2. 4. Hypertensive heart disease. 5. Mild coronary artery disease. 6. Chronic hepatitis C. 7. Nonischemic cardiomyopathy. 8. History of systolic heart failure with ejection fraction 20% to 25% in the past. Recent echo showed improvement. 9. Penicillin allergy. 10. Elevated troponin secondary to hypertensive urgency/type 2 myocardial infarction. 11. Chronic anemia - prob due to CKD 12. Thrombocytopenia. 13. Hypokalemia PLAN: Cont Lasix Replace Potassium Lisinopril on hold due to ALEC Cont Coreg - dose increased Cont Hydralazine/isosorbide dinitrate. Cont NPH 10 units BID with sliding scale. GI f/u as outpt for Hep C (Patient was not aware of Hep C - RNA was positive in 2013) BMP in AM Review of Systems - Review of Systems Respiratory: negative: Cough, Dry, Shortness of Breath, Hemoptysis, SOB with Excertion, Pleuritic Pain, Sputum, Wheezing Cardiovascular: negative: chest pain, palpitations, orthopnea, paroxysmal nocturnal dyspnea, edema, light headedness, other Gastrointestinal: negative: Nausea, Vomiting, Abdominal Pain, Diarrhea, Constipation, Melena, Hematochezia, Other - Medications/Allergies Allergies/Adverse Reactions: Allergies Allergy/AdvReac Type Severity Reaction Status Date / Time Penicillins Allergy Verified 01/04/19 20:07 Medications: Current Medications Acetaminophen (Tylenol) 650 mg PO Q4H PRN PRN Reason: Headache/Fever/Mild Pain (1-3) Last Admin: 01/06/19 03:52 Dose: 650 mg Acetaminophen/Codeine Phosphate (Tylenol #3) 1 tab PO Q6H PRN PRN Reason: Mild Pain (1-3) Aspirin (Ecotrin) 81 mg PO DAILY [facility] Carvedilol (Coreg) 50 mg PO BID-[facility] Last Admin: 01/10/19 08:35 Dose: 50 mg Clonidine (Catapres) 0.1 mg PO Q4H PRN PRN Reason: SBP Greater Than 180 Cyanocobalamin (Vitamin B-12) 1,000 mcg PO DAILY [facility] Last Admin: 01/10/19 08:35 Dose: 1,000 mcg Dextrose/Water (Dextrose 50%) 25 gm SLOW IVP PRN PRN PRN Reason: Hypoglycemia Folic Acid (Folvite) 1 mg PO DAILY [facility] Last Admin: 01/10/19 08:35 Dose: 1 mg Furosemide (Lasix) 40 mg PO 0900 [facility] Last Admin: 01/10/19 08:36 Dose: 40 mg Glucagon (Glucagon) 1 mg IM PRN PRN PRN Reason: Hypoglycemia Hydralazine HCl (Apresoline) 10 mg SLOW IVP Q6H PRN PRN Reason: SBP Greater Than 170 Last Admin: 01/06/19 00:11 Dose: 10 mg Hydralazine HCl (Apresoline) 100 mg PO TID [facility] Last Admin: 01/10/19 14:08 Dose: 100 mg Dextrose/Water (D5w) 1,000 mls @ 0 mls/hr IV .Q0M PRN PRN Reason: Hypoglycemia Insulin Human Lispro (Humalog) 0 units SC .MODERATE SLIDING SC PRN PRN Reason: Moderate Correctional Scale Last Admin: 01/10/19 10:35 Dose: 6 unit Insulin Human Lispro (Humalog) 0 units SC .BEDTIME SLIDING SC PRN PRN Reason: Bedtime Correctional Scale Insulin Human NPH (Humulin N) 10 unit SC BID [facility] Last Admin: 01/10/19 08:38 Dose: 10 unit Isosorbide Dinitrate (Isordil) 40 mg PO BID [facility] Last Admin: 01/10/19 08:35 Dose: 40 mg Labetalol HCl (Normodyne) 10 mg SLOW IVP Q8H PRN PRN Reason: SBP Greater Than 180 Nitroglycerin (Nitrostat) 0.4 mg SL Q5MIN PRN PRN Reason: Chest Pain Ondansetron HCl (Zofran) 4 mg IVP Q6H PRN PRN Reason: Nausea/Vomiting Last Admin: 01/05/19 22:44 Dose: 4 mg Pantoprazole Sodium (Protonix) 40 mg PO DAILY [facility] Last Admin: 01/10/19 08:35 Dose: 40 mg Polyethylene Glycol (Miralax) 17 gm PO DAILY PRN PRN Reason: Constipation Last Admin: 01/09/19 16:10 Dose: 17 gm Senna (Senokot) 2 tab PO HSPRN PRN PRN Reason: Constipation Last Admin: 01/10/19 08:36 Dose: 2 tab Sodium Chloride (Flush - Normal Saline) 10 ml IVF Q12HR [facility] Last Admin: 01/10/19 08:38 Dose: 10 ml Sodium Chloride (Flush - Normal Saline) 10 ml IVF PRN PRN PRN Reason: Saline Flush Last Admin: 01/07/19 04:33 Dose: 10 ml Tramadol HCl (Ultram) 50 mg PO Q6H PRN PRN Reason: Pain Last Admin: 01/10/19 08:36 Dose: 50 mg
[2019-01-11 05:14] LABS: #Eosinphils 0.2 thou/uL (0.0-0.7); #Lymphocytes 2.8 thou/uL (1.20-3.40); #Monocytes 0.5 thou/uL (0.11-0.59); #Neutrophils 2.3 thou/uL (1.40-6.50); %Basophils 0.7 % (0.0-1.0); %Eosinophils 3.8 % (0.0-10.0); %Monocytes 8.6 % (0.0-10.0); %Neutrophils 39.9 % (42.0-75.0); Hemoglobin 9.3 g/dL (12.0-16.0); Mean Corpuscular HGB CONC 32.4 g/dL (32.0-36.0); Mean Corpuscular Hemoglobin 26.9 pg (27.0-31.0); Mean Corpuscular Volume 83.1 fL (78.0-98.0); Mean Platelet Volume 11.4 fL (7.4-10.4); Platelet Count 117 thou/uL (130-400); RBC Distribution Width 17.1 % (11.5-14.5); Red Blood Cell (RBC) Count 3.46 mill/uL (4.20-5.40); White Blood Cell (WBC) Count 5.9 thou/uL (4.8-10.8)
[2019-01-11 05:28] LABS: Anion Gap 13 mmol/L (10-20); BUN (Urea Nitrogen) 29 mg/dL (9.8-20.1); Calc. Creatinine Clearance 41 mL/min (70-130); Calcium 9.8 mg/dL (7.8-10.44); Carbon Dioxide 22 mmol/L (23-31); Chloride 107 mmol/L (98-107); Estimated GFR-MDRD 37; Glucose 196 mg/dL (80-115); Potassium 3.5 mmol/L (3.5-5.1); Sodium 138 mmol/L (136-145)
--- NOTE | 2019-01-11 08:58 | PRG ---
DATE OF SERVICE: 01/11/2019 SUBJECTIVE: Ms. Barrera is a 63-year-old black female, seen by the Renal Service for acute kidney injury on top of her chronic renal failure. She is feeling better. No new complaints today. Creatinine is stable. In the last 2 days, I have resumed back her Lasix at 40 mg tablet once a day. She does have history of cardiomyopathy/CHF. She is clinically asymptomatic. No chest pain or shortness of breath. OBJECTIVE: VITAL SIGNS: Blood pressure is 176/96, heart rate is 80, respiratory rate is 18, temperature is 98.5, and pulse ox 93% on room air. GENERAL: Awake, alert, sitting comfortable, not in distress. SKIN: Adequate turgor. HEENT: Pinkish conjunctivae. Anicteric sclerae. NECK: No neck mass. No carotid bruits. No JVD. CHEST: No deformities. LUNGS: Clear breath sounds. No wheezing. No crackles. HEART: Normal sinus rhythm. No murmur. No gallops. No rubs. ABDOMEN: Globular, soft, nontender. No masses. EXTREMITIES: No edema. No deformities. MEDICATIONS: Medications of January 11, 2019, were reviewed. LABORATORY DATA: Laboratories of January 11, 2019; white count 5.9, hemoglobin 9.3. Sodium 138, potassium 4.5, chloride 107, carbon dioxide 22, BUN 29, creatinine 1.69, glucose 196, calcium 9.8. ASSESSMENT AND PLAN: 1. Acute kidney injury/chronic renal failure-hemodynamically mediated renal dysfunction. Much improved. Creatinine 1.69 is acceptable. There is no indication for any dialytic intervention with this patient. Agree with current management. Continue judicious use of diuretics. 2. Congestive heart failure/cardiomyopathy, on Lasix 40 mg tablet once a day. 3. From a Renal point of view, this patient can be discharged. We will follow her up at the [facility]al [facility]. Job ID: [id number]
[2019-01-11] MEDS ORDERED: Aspirin 81 mg Enteric Coated Tablet PO SCH (09:00)
[2019-01-11] MEDS: Carvedilol 25 MG TAB PO SCH (09:06)
[2019-01-11] MEDS: Folic Acid 1 MG TAB PO SCH (09:07)
[2019-01-11] MEDS: Cyanocobalamin (Vitamin B-12) 1,000 MCG TAB PO SCH (09:07)
[2019-01-11] MEDS: Isosorbide Dinitrate 20 MG TAB PO SCH (09:07)
[2019-01-11] MEDS: hydrALAZINE 25 MG TAB PO SCH ×2 (09:07→15:55)
[2019-01-11] MEDS: Furosemide 40 MG TAB PO SCH (09:07)
[2019-01-11] MEDS: NPH, Human Insulin Isophane 300 UNIT/3 ML VIAL SC SCH (09:08)
[2019-01-11] MEDS: HumaLOG 300 UNITS/3 ML VIAL SC PRN (12:33)
[2019-01-11 15:53] VITALS: BP 136/84; TEMP 97.8
--- NOTE | 2019-01-11 16:33 | DIS ---
DATE OF ADMISSION: 01/04/2019 DATE OF DISCHARGE: 01/11/2019 DISCHARGE DISPOSITION: Home. FOLLOWUP: 1. Follow up with primary care physician at [facility] in 1 week. 2. Follow up with Dr. Jamil Redman as scheduled. 3. Follow up with GI Clinic for chronic hepatitis C. ALLERGIES: THE PATIENT IS ALLERGIC TO PENICILLIN. MEDICATION DISCONTINUED: Medication discontinued in this admission is lisinopril. DISCHARGE MEDICATIONS: 1. Hydralazine 100 mg 3 times a day. 2. Isosorbide dinitrate 40 mg 3 times a day. 3. Aspirin 81 mg daily. 4. Lipitor 10 mg at bedtime. 5. Carvedilol 50 mg b.i.d. (dose increased). 6. Lasix 40 mg daily. 7. Clonidine 0.1 mg twice daily as needed for systolic blood pressure more than 180. 8. Novolin 70/30 of 8 units b.i.d. INPATIENT SINGLE STAYER OPERATOR: 1. Nephrology, Dr. Degroot. 2. Cardiology, Dr. Jamil Redman. BRIEF HOSPITAL COURSE: The patient is a 63-year-old female with hypertension, diabetes, and cardiomyopathy, presented to the emergency room with elevated blood pressure. Her blood pressure in the emergency room was 180/110. She was admitted to the telemetry unit. She was started on her home medication in addition to IV hydralazine and labetalol on an as-needed basis. An echocardiogram was obtained that showed ejection fraction of 45% to 50% with mild mitral regurgitation, mild tricuspid regurgitation, mild pulmonic regurgitation with mild concentric left ventricular hypertrophy. Her blood pressure medication have been optimized by Cardiology, Dr. Redman as well as Nephrology, Dr. Degroot. Her vital signs on the day of discharge showed blood pressure of 157/93 and 163/90. Dr. Redman and Dr. Degroot has cleared the patient for discharge. She was advised to monitor her blood pressure on a daily basis and to maintain a log. She was counseled on dietary modification. She also had a renal ultrasound that was negative for renal artery stenosis. She was also advised to follow up with Cardiology, Dr. Meredith for thoracic aortic aneurysm measuring 5.5 cm. She will follow up with Gastroenterology as outpatient for chronic hepatitis C. Hepatitis C RNA was 1.9 million. FINAL DIAGNOSES: 1. Hypertensive urgency. 2. Acute kidney injury on chronic kidney disease, stage 3. Her maximum creatinine this admission went up to 3.49. At discharge, it is 1.69. Lisinopril has been discontinued. 3. Diabetes mellitus, type 2. 4. Hypertensive heart disease. 5. Mild coronary artery disease. 6. Chronic hepatitis C. Please note that her hepatitis C viral load in 2013 was [id number]. The patient was unaware of the diagnosis of chronic hepatitis C prior to this admission. 7. History of systolic heart failure, ejection fraction 20% to 25% in the past. Recent echo showed significant improvement. 8. Chronic anemia, probably due to chronic kidney disease. 9. Elevated troponin secondary to hypertensive urgency/type 2 myocardial infarction. 10. Thrombocytopenia. Her platelets on the day of discharge are 117. 11. Hypokalemia, replaced. 12. Penicillin allergy. PLAN: Plan of care was discussed with the patient in detail, she stated understanding. Job ID: [id number]
== END 2019-01-11 17:00 | disposition home or self-care (01) | DRG 281 ==
LOC: ERS 12:44 → 2SW 14:50 → OBSVTOIN 14:50 → 2NO 01-07 22:49
PROVIDERS: ADMIT Internal Medicine; ATTEND Internal Medicine
DX: I16.0 Hypertensive urgency (principal); I21.A1 Myocardial infarction type 2; I42.8 Other cardiomyopathies; N17.9 Acute kidney failure, unspecified; I50.22 Chronic systolic (congestive) heart failure; I13.0 Hypertensive heart and chronic kidney disease with heart failure and stage 1 through stage 4 chronic kidney disease, or unspecified chronic kidney disease; N18.3 Chronic kidney disease, stage 3 (moderate); F32.9 Major depressive disorder, single episode, unspecified; E11.22 Type 2 diabetes mellitus with diabetic chronic kidney disease; E78.5 Hyperlipidemia, unspecified; E66.9 Obesity, unspecified; I25.10 Atherosclerotic heart disease of native coronary artery without angina pectoris; I37.1 Nonrheumatic pulmonary valve insufficiency; I07.1 Rheumatic tricuspid insufficiency; B18.2 Chronic viral hepatitis C; D63.1 Anemia in chronic kidney disease; D69.6 Thrombocytopenia, unspecified; I71.2 Thoracic aortic aneurysm, without rupture; E11.21 Type 2 diabetes mellitus with diabetic nephropathy; E87.6 Hypokalemia; Z79.4 Long term (current) use of insulin; Z68.26 Body mass index [BMI] 26.0-26.9, adult; Z91.14 Patient's other noncompliance with medication regimen; Z87.891 Personal history of nicotine dependence; Z88.0 Allergy status to penicillin; Z79.82 Long term (current) use of aspirin; Z79.899 Other long term (current) drug therapy
CPT/HCPCS: 36415; 36416; 70450; 71045; 76700; 76770; 80048; 80053; 80306; 81001; 82274; 82550; 82570; 82728; 83036; 83540; 83550; 83880; 84156; 84484; 85025; 85046; 86803; 87522; 93005; 93306; 93798; 96374; J0360; J1815; J1940; J2405; J2550; P9047

== ENCOUNTER 2019-02-26 09:59 | Emergency (ER) | payer OTHER ==
[2019-02-26 10:39] LABS: #Basophils 0.1 thou/uL (0.0-0.2); #Eosinphils 0.2 thou/uL (0.0-0.7); #Lymphocytes 3.5 thou/uL (1.20-3.40); #Monocytes 0.5 thou/uL (0.11-0.59); #Neutrophils 4.2 thou/uL (1.40-6.50); %Basophils 1.3 % (0.0-1.0); %Eosinophils 1.9 % (0.0-10.0); %Lymphocytes 41.3 % (21.0-51.0); %Monocytes 5.7 % (0.0-10.0); %Neutrophils 49.8 % (42.0-75.0); Hemoglobin 11.4 g/dL (12.0-16.0); Mean Corpuscular HGB CONC 33.4 g/dL (32.0-36.0); Mean Corpuscular Hemoglobin 26.6 pg (27.0-31.0); Mean Corpuscular Volume 79.7 fL (78.0-98.0); Mean Platelet Volume 8.7 fL (7.4-10.4); Platelet Count 116 thou/uL (130-400); RBC Distribution Width 15.5 % (11.5-14.5); Red Blood Cell (RBC) Count 4.28 mill/uL (4.20-5.40); White Blood Cell (WBC) Count 8.5 thou/uL (4.8-10.8)
[2019-02-26 10:52] LABS: MDiff Complete? YES; Platelet Morphology Comment Appears Decreased; Polychromasia SLIGHT = 2-3 cells (100X) (0-2/hpf)
[2019-02-26] MEDS ORDERED: cloNIDine 0.1 MG TAB ONE ×2 (10:52→15:05)
[2019-02-26] MEDS ORDERED: Acetaminophen 500 MG TAB ONE (10:52)
--- NOTE | 2019-02-26 11:01 | RAD ---
XR Chest 1 View Portable HISTORY: Hypertension, dizziness, blurred vision COMPARISON: 01/04/2019 FINDINGS: The heart size is borderline but stable. Aortic aneurysm is again seen. No focal areas of c onsolidation, pneumothoraces, robert pulmonary edema or pleural effusions are identified. IMPRESSION: No radiographic evidence of acute cardiopulmonary process.
[2019-02-26 11:02] LABS: ALT (SGPT) 55 U/L (8-55); AST (SGOT) 54 U/L (5-34); Albumin 3.9 g/dL (3.4-4.8); Alkaline Phosphatase 132 U/L (40-150); Anion Gap 14 mmol/L (10-20); BUN (Urea Nitrogen) 28 mg/dL (9.8-20.1); Bilirubin, Total 0.5 mg/dL (0.2-1.2); CK (CPK) 33 U/L (29-168); Calc. Creatinine Clearance 0 mL/min (70-130); Calcium 10.8 mg/dL (7.8-10.44); Carbon Dioxide 24 mmol/L (23-31); Chloride 103 mmol/L (98-107); Estimated GFR-MDRD 33; Globulin 4.5 g/dL (2.4-3.5); Glucose 310 mg/dL (80-115); Potassium 3.7 mmol/L (3.5-5.1); Protein, Total 8.4 g/dL (6.0-8.3); Sodium 137 mmol/L (136-145)
--- NOTE | 2019-02-26 11:12 | CT ---
CT BRAIN WITHOUT CONTRAST: HISTORY:Hypertension. Headache. Blurred vision COMPARISON:01/06/2019 FINDINGS: There are foci of decreased attenuation in the periventricular white matter, consistent with chronic small vessel ischemic disease. No evidence of acute infarct, hemorrhage, midline shift or abnormal extra-axial fluid collections is seen. The ventricular size is appropriate and the basilar cisterns are patent. The bony calvarium is intact. The visualized paranasal sinuses and mastoid air cells are well aerated. IMPRESSION: No CT evidence of acute intracranial process.
[2019-02-26] MEDS ORDERED: Metoclopramide HCl 10 MG/2 ML VIAL ONE (14:04)
== END 2019-02-26 15:50 | disposition home or self-care (01) ==
LOC: ERS 09:59
DX: R51 Headache (principal); I10 Essential (primary) hypertension; I11.0 Hypertensive heart disease with heart failure; I50.9 Heart failure, unspecified; E11.9 Type 2 diabetes mellitus without complications; Z87.891 Personal history of nicotine dependence; Z79.899 Other long term (current) drug therapy; Z79.82 Long term (current) use of aspirin; Z79.4 Long term (current) use of insulin
CPT/HCPCS: 36415; 70450; 71045; 80053; 82550; 83880; 84484; 85025; 93005; 96365; J2765

== ENCOUNTER 2019-09-15 00:46 | Observation (INO) | payer OTHER ==
[2019-09-15 01:26] LABS: #Basophils 0.1 thou/uL (0.0-0.2); #Eosinphils 0.2 thou/uL (0.0-0.7); #Lymphocytes 3.5 thou/uL (1.20-3.40); #Monocytes 0.6 thou/uL (0.11-0.59); #Neutrophils 3.8 thou/uL (1.40-6.50); %Basophils 1.3 % (0.0-1.0); %Eosinophils 2.6 % (0.0-10.0); %Lymphocytes 42.5 % (21.0-51.0); %Monocytes 7.3 % (0.0-10.0); %Neutrophils 46.4 % (42.0-75.0); Hemoglobin 11.1 g/dL (12.0-16.0); Mean Corpuscular HGB CONC 34.5 g/dL (32.0-36.0); Mean Corpuscular Hemoglobin 31.6 pg (27.0-31.0); Mean Corpuscular Volume 91.6 fL (78.0-98.0); Mean Platelet Volume 11.6 fL (7.4-10.4); Platelet Count 101 thou/uL (130-400); RBC Distribution Width 14.7 % (11.5-14.5); White Blood Cell (WBC) Count 8.3 thou/uL (4.8-10.8)
[2019-09-15 01:47] LABS: ALT (SGPT) 46 U/L (8-55); AST (SGOT) 38 U/L (5-34); Albumin 3.5 g/dL (3.4-4.8); Alkaline Phosphatase 77 U/L (40-110); Anion Gap 15 mmol/L (10-20); BUN (Urea Nitrogen) 33 mg/dL (9.8-20.1); Bilirubin, Total 0.4 mg/dL (0.2-1.2); Calc. Creatinine Clearance 0 mL/min (70-130); Calcium 9.8 mg/dL (7.8-10.44); Carbon Dioxide 20 mmol/L (23-31); Chloride 109 mmol/L (98-107); Estimated GFR-MDRD 32; Globulin 3.8 g/dL (2.4-3.5); Glucose 226 mg/dL (80-115); Potassium 3.4 mmol/L (3.5-5.1); Protein, Total 7.3 g/dL (6.0-8.3); Sodium 141 mmol/L (136-145)
[2019-09-15] MEDS ORDERED: Furosemide 40 MG/4 ML VIAL ONE (02:12)
[2019-09-15] MEDS ORDERED: Aspirin Chewable 81 MG TAB ONE (04:03)
[2019-09-15 04:44] LABS: Troponin I 0.032 ng/mL (< 0.028)
[2019-09-15] MEDS ORDERED: HYDROcodone/Acetaminophen 5/325 mg Tablet PO PRN ×2 (04:53)
[2019-09-15] MEDS ORDERED: Ondansetron ODT 4 MG TAB SL PRN (04:53)
[2019-09-15] MEDS ORDERED: Acetaminophen 325 MG TAB PO PRN (04:53)
[2019-09-15] MEDS ORDERED: Ondansetron PF 4 MG/2 ML Vial IVP PRN ×2 (04:53→06:16)
[2019-09-15] MEDS ORDERED: Calcium Carbonate 500 MG ChewTAB PO PRN (06:16)
[2019-09-15] MEDS ORDERED: Senokot S 8.6-50 MG TAB PO PRN (06:16)
[2019-09-15] MEDS ORDERED: Ondansetron ODT 4 MG TAB PO PRN (06:16)
[2019-09-15] MEDS ORDERED: cloNIDine 0.1 MG TAB PO PRN (06:18)
[2019-09-15] MEDS ORDERED: hydrALAZINE 20 MG/ML VIAL SLOW IVP PRN (06:19)
--- NOTE | 2019-09-15 06:35 | HP ---
PRIMARY CARE: [facility]. CHIEF COMPLAINT: Shortness of breath. HISTORY OF PRESENT ILLNESS: The patient is a 64-year-old female with chronic systolic heart failure, presented to the emergency room with above complaints. Over the last 1 week or so, the patient had gradual worsening shortness of breath. The shortness of breath got worse over the past 2 days. She also had some chest tightness, which was substernal, constant. The shortness of breath was worse on lying down flat as well as on [id number] exertion. She had some dry cough as well. She had some lower extremity swelling. No recent immobilization, travel, fever, chills, nausea, vomiting, lightheadedness, dizziness, or syncope reported. The patient's blood pressure per EMS was 214/110. She received 3 sublingual nitroglycerin and a 1 inch nitroglycerin patch was placed. PAST MEDICAL HISTORY: 1. Chronic systolic heart failure. 2. CKD, stage 3. 3. Diabetes mellitus type 2. 4. Hypertension with hypertensive heart disease. 5. Mild coronary artery disease. 6. Chronic hepatitis C. 7. Chronic anemia. 8. Penicillin allergy. 9. Chronic thrombocytopenia. 10. Depression. PAST SURGICAL HISTORY: section. ALLERGIES: THE PATIENT IS ALLERGIC TO PENICILLIN. CURRENT HOME MEDICATIONS: 1. Carvedilol 12.5 mg b.i.d. 2. Clonidine 0.2 mg 3 times a day. 3. Ferrous sulfate 325 mg b.i.d. 4. Lasix 10 mg daily. 5. Gabapentin 300 mg b.i.d. 6. Hydralazine 50 mg 3 times a day. 7. Isosorbide dinitrate 20 mg 3 times a day. 8. Metformin 500 mg b.i.d. 9. Protonix 40 mg daily. 10. Aspirin 81 mg daily. 11. Lipitor 10 mg at bedtime. SOCIAL HISTORY: The patient currently lives at home. Denies any tobacco, alcohol, or drug use. She has a history of drug abuse in the past. FAMILY HISTORY: Colon cancer in her sisters. REVIEW OF SYSTEMS: All other review of systems was reviewed and were found negative. PHYSICAL EXAMINATION: VITAL SIGNS: Temperature 98.1, respirations 18, pulse 86, blood pressure 164/ 102, and O2 saturation 95% on room air. GENERAL: A 64-year-old female, in no significant distress at rest. HEENT: Head atraumatic and normocephalic. Sclerae anicteric. Moist mucous membranes. No oral lesion. NECK: Supple. No JVD elevation noted. LUNGS: Showed bibasilar rales with scattered rhonchi. No significant accessory muscle use. No wheezing. HEART: S1 and S2 present. Regular. No rubs or gallops. ABDOMEN: Soft, nontender. Bowel sounds present. EXTREMITIES: 1+ edema in bilateral lower extremity. No calf tenderness. SKIN: Warm and dry. LYMPH NODES: No palpable lymph nodes in the neck. PERIPHERAL VASCULAR: Radial pulses palpable bilaterally. MUSCULOSKELETAL: No joint swelling or tenderness. LABORATORY FINDINGS: CBC showed WBC 8.3 with hemoglobin 11.1, hematocrit 32.1, platelets 101. Chemistry showed sodium 141, potassium 3.4, chloride 109, bicarb 20, BUN 33, creatinine 1.89. Troponin was 0.018. CT angiogram of the chest by my review showed aneurysmal dilatation of the aortic arch and descending thoracic aorta, stable since the prior examination from 2014. EKG by my review showed sinus rhythm with first-degree AV block. IMPRESSION: 1. Acute on chronic systolic heart failure exacerbation. 2. Chronic kidney disease, stage 3. 3. Hypokalemia. 4. Chronic anemia, suspected due to nutritional deficiency. 5. Chronic thrombocytopenia. 6. Chronic hepatitis C. 7. Diabetes mellitus type 2. 8. Hypertension with hypertensive urgency. 9. Hypertensive heart disease. 10. Aortic aneurysm. 11. Peripheral neuropathy. PLAN: The patient will be monitored on the telemetry unit. Serial troponins will be obtained. We will start her on fluid restriction. We will monitor labs on a daily basis. Consult nephrology, Dr. Degroot. We will start gentle diuretics. The patient was extensively counseled on congestive heart failure. Home medications will be resumed. Metformin will be held due to elevated creatinine. We will continue aspirin, carvedilol, and clonidine. Hold ACEI/ARB/Aldactone due to renal failure. The patient understands the above plan of care. Job ID: [id number] [facility]
[2019-09-15] MEDS: Gabapentin 300 MG CAP PO SCH ×2 (07:41→21:48)
[2019-09-15] MEDS: Aspirin 81 mg Enteric Coated Tablet PO SCH (07:41)
[2019-09-15] MEDS: cloNIDine 0.2 MG TAB PO SCH ×3 (07:42→21:48)
[2019-09-15] MEDS: Carvedilol 6.25 MG TAB PO SCH ×2 (07:43→16:13)
[2019-09-15] MEDS: Isosorbide Dinitrate 20 MG TAB PO SCH ×3 (07:43→21:48)
[2019-09-15] MEDS: Ferrous Sulfate 325 MG TAB PO SCH ×2 (07:44→21:47)
[2019-09-15 07:55] LABS: Anion Gap 13 mmol/L (10-20); BUN (Urea Nitrogen) 32 mg/dL (9.8-20.1); Calc. Creatinine Clearance 38 mL/min (70-130); Calcium 9.9 mg/dL (7.8-10.44); Carbon Dioxide 25 mmol/L (23-31); Chloride 107 mmol/L (98-107); Estimated GFR-MDRD 33; Glucose 152 mg/dL (80-115); Magnesium 1.4 mg/dL (1.6-2.6); Potassium 3.5 mmol/L (3.5-5.1); Sodium 141 mmol/L (136-145)
[2019-09-15 08:00] LABS: Troponin I 0.034 ng/mL (< 0.028)
[2019-09-15] MEDS ORDERED: Carvedilol 25 MG TAB PO SCH (08:00)
--- NOTE | 2019-09-15 08:38 | CT ---
PRELIMINARY REPORT/[facility]/EMERGENCY AFTER HOURS PROCEDURE: EXAM: CT Chest with Intravenous Contrast. CT Abdomen and Pelvis with Intravenous Contrast CLINICAL HISTORY: ER 2... 64F with history of HTN, DM, CHF presents to the ED via EMS for evaluation of chest pain and SOB that has been worsening over the last 2 days. Chest pain is substernal pressure and constant. SOB present with exertion and lying flat. Patient endorses recent increase in swelling and weight gain TECHNIQUE: Axial computed tomography images of the chest and abdomen with intravenous contrast. CONTRAST: With; ISOVUE 360, 60ML COMPARISON: 03/08/2015. FINDINGS: CHEST: LUNGS: No pulmonary mass. No focal airspace consolidation. Bibasilar subsegmental atelectasis. PLEURAL SPACES: No pleural effusion. No pneumothorax. HEART AND MEDIASTINUM: Moderate cardiomegaly. No significant pericardial effusion. Coronary artery disease. LYMPH NODES: No lymphadenopathy. THORACIC AORTA: There is dilatation of the aortic arch and descending thoracic aorta measuring up to 4.5 cm in diamet er. Atherosclerosis. ABDOMEN AND PELVIS: LIVER: Cirrhotic morphology of the liver with a nodular contour and enlarged left lobe. No focal lesions. GALLBLADDER AND BILE DUCTS: Unremarkable. No calcified stone. No ductal dilation. PANCREAS: Unremarkable. SPLEEN: The spleen is mildly enlarged measuring 12.7 cm in length. ADRENAL GLANDS: Unremarkable. KIDNEYS, URETERS: Several left-sided renal cyst measuring up to 1.5 cm. Several right-sided renal cyst measuring up to 1.6 cm. No hydronephrosis or nephrolithiasis. No ureteral calculi. STOMACH AND BOWEL: No obstruction. No wall thickening. No CT evidence of colitis or acute diverticulitis. APPENDIX: No CT evidence for appendicitis. PERITONEUM: No free fluid. No free air. LYMPH NODES: No lymphadenopathy. VASCULATURE: Normal caliber of the abdominal aorta. Atherosclerosis. BONES AND SOFT TISSUES: No acute osseous abnormality. Multilevel degenerative disc disease. The soft tissues are unremarkab le. Fat filled umbilical hernia. IMPRESSION: No acute intra-thoracic, intra-abdominal, or intra-pelvic abnormality. 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 No evidence of an aortic dissection. Moderate cardiomegaly coronary disease. Cirrhotic morphology of the liver. Mild splenomegaly. Bilateral simple renal cyst. ELECTRONICALLY SIGNED BY: Kevin Cardenas MD Sep 15, 2019 2:22:16 AM CDT This report is intended for review by the ordering physician only, in accordance of law. If you recei ve this report in error, please call [facility] at [phone]. FINAL REPORT CTA CHEST WITH IV CONTRAST AND 3D POSTPROCESSING CTA ABDOMEN WITH IV CONTRAST AND 3D POSTPROCESSING: I agree with the preliminary report given by [facility]. Incidental note is made of mild prominence of a loop of small bowel in the left hemiabdomen measuring up to 3.0 cm in diameter. If there is concern for small bowel obstruction, further evaluation with s mall bowel series would be helpful. Discussed over the telephone with ER physician, Dr. Rocha, at 0756 hours. CODE CR. POS: [facility]
--- NOTE | 2019-09-15 08:44 | RAD ---
SINGLE VIEW OF THE CHEST: COMPARISON: 02/26/2019. HISTORY: Vascular congestion and chest pain. FINDINGS: Single view of the chest shows a normal sized cardiomediastinal silhouette. There is no evidence of c onsolidation, mass, or pleural effusion. The bones are unremarkable. IMPRESSION: No evidence of acute cardiopulmonary disease. POS: [facility]
[2019-09-15] MEDS ORDERED: cloNIDine 0.1 MG TAB PO SCH (09:00)
[2019-09-15] MEDS ORDERED: Non-Formulary Item 1 EACH (Ferrous Sulfate [Ferrous Sulfate] 325 MG) PO SCH (09:00)
[2019-09-15] MEDS ORDERED: hydrALAZINE 25 MG TAB PO SCH ×2 (09:00→11:00)
--- NOTE | 2019-09-15 09:15 | CON ---
DATE OF CONSULTATION: HISTORY OF PRESENT ILLNESS: Ms. Barrera is a 64-year-old black female with known history of chronic renal failure, admitted for shortness of breath secondary to presumed CHF. We are now being consulted for chronic renal failure. In addition, she was noted to be significantly hypertensive with an initial BP of 214/110. This morning, she is feeling better. Her breathing is much improved. Please note, she has received some diuretics since admission. REVIEW OF SYSTEMS: No chest pain. Positive for shortness of breath. No leg edema. No fever or chills. No diarrhea. No constipation. No productive cough. No headache. No diplopia. No sore throat. No hematochezia. No melena. No hematemesis. MEDICATIONS: The patient is currently on Protonix 40 mg tablet once a day, Zofran 4 mg IV q.6, Isordil 20 mg p.o. t.i.d., hydralazine 50 mg p.o. t.i.d., gabapentin 300 mg p.o. b.i.d., furosemide 20 mg IV q.12. PAST MEDICAL HISTORY: 1. CHF. 2. Longstanding hypertension. 3. Type 2 diabetes mellitus. 4. History of cardiomyopathy. PAST SURGICAL HISTORY: Status post cardiac cath, status post section. SOCIAL HISTORY: The patient lives in [place]. She is single, lives with a friend. She is . She is a retired home health caregiver. Two children. Education, high school. Smoked for 20 years, 1 pack a day, currently not smoking. No IV drug abuse. No blood transfusion. No alcohol. ALLERGIES: PENICILLIN. TRAUMA: None. IMMUNIZATIONS: Up to date. HOSPITALIZATIONS: Please see past medical history. FAMILY HISTORY: No family history of ESRD. PHYSICAL EXAMINATION: VITAL SIGNS: Blood pressure is noted at 187/98, heart rate 73, respiratory rate 16, temperature 97.8, pulse ox 94%. GENERAL: Awake, alert, comfortable, not in distress. SKIN: Adequate turgor. HEENT: She has pinkish conjunctivae. Anicteric sclerae. No neck mass. No carotid bruits. No JVD. CHEST: No deformities. LUNGS: Decreased breath sounds. HEART: Normal sinus rhythm. No murmur. No gallops. No rubs. ABDOMEN: Globular, soft, nontender. No masses. EXTREMITIES: No edema. No deformities. NEUROLOGICAL: The patient is oriented to 3 spheres. Moving all extremities. No tremors. No asterixis. No ataxia. LABORATORY DATA: Laboratories of 09/15/2019; white count 8.3, hemoglobin 11.1. Sodium 141, potassium 3.5, chloride 107, carbon dioxide 25, BUN 32, creatinine 1.85, glucose 152, calcium 9.9, magnesium 1.4. Troponin I 0.034. On 09/15/2019, CT scan of the chest showed no obvious abnormality. Finding of aneurysmal dilatation of the aortic arch and descending thoracic aorta-stable. No evidence of aortic dissection. There is moderate cardiomegaly. Incidental finding of cirrhotic morphology of the liver. ASSESSMENT AND PLAN: 1. Chronic renal failure-previously this was felt either from a combination of hypertensive/diabetic nephropathy. Chronic glomerulonephritis is also a possibility due to her history of chronic hepatitis C. Renal function is noted to be relatively stable. I would continue judicious use of diuretics. If her shortness of breath is improved, my bias is to hold off diuretics. 2. Cirrhosis-the patient has underlying chronic hepatitis C. She will need referral to GI for further evaluation. There is no indication for any dialytic intervention with this patient. Overall agree with current management. Job ID: [id number]
[2019-09-15] MEDS: Magnesium Oxide 400 MG TAB PO SCH ×2 (09:23→21:48)
[2019-09-15] MEDS ORDERED: Amlodipine 5 MG TAB PO SCH (13:00)
[2019-09-15] MEDS: Furosemide 20 MG/2 ML VIAL SLOW IVP SCH (13:03)
[2019-09-15] MEDS ORDERED: Iopamidol 370 76% 100 ML VIAL ONE (13:51)
[2019-09-15] MEDS: hydrALAZINE 25 MG TAB PO SCH ×2 (14:29→21:47)
[2019-09-15] MEDS: hydrALAZINE 20 MG/ML VIAL SLOW IVP PRN (16:13)
[2019-09-15] MEDS: Acetaminophen 325 MG TAB PO PRN (18:24)
[2019-09-15] MEDS ORDERED: Dextrose 5% in Water 1,000 ML IV PRN (20:13)
[2019-09-15] MEDS ORDERED: Dextrose 50% Abboject 50 ML SYRINGE SLOW IVP PRN (20:13)
[2019-09-15] MEDS ORDERED: HumaLOG 300 UNITS/3 ML VIAL SC PRN ×2 (20:13)
[2019-09-15] MEDS ORDERED: Atorvastatin Calcium 10 MG TAB PO SCH (21:00)
--- NOTE | 2019-09-16 00:46 | PDOC.EVN ---
Event Note - Event Note Event Note: Notified by RN, patient complaining of chest pain 5/10, left sided. Vitals stable. Lasting 5 min. EKG done, no dynamic changes. Similar to initial EKG. Known history of CAD. 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 Will give Nitro SL and order serial troponins. Continue to monitor.
[2019-09-16] MEDS ORDERED: Nitroglycerin 0.4 MG TAB (25 Tab Bottle) ONE (00:48)
[2019-09-16] MEDS: Nitroglycerin 0.4 MG TAB (25 Tab Bottle) SL PRN ×2 (00:57→01:02)
[2019-09-16] MEDS: Acetaminophen 325 MG TAB PO PRN (01:08)
[2019-09-16 01:21] LABS: Anion Gap 14 mmol/L (10-20); BUN (Urea Nitrogen) 34 mg/dL (9.8-20.1); Calc. Creatinine Clearance 41 mL/min (70-130); Calcium 9.4 mg/dL (7.8-10.44); Carbon Dioxide 22 mmol/L (23-31); Chloride 107 mmol/L (98-107); Estimated GFR-MDRD 37; Glucose 158 mg/dL (80-115); Magnesium 1.6 mg/dL (1.6-2.6); Potassium 3.3 mmol/L (3.5-5.1); Sodium 140 mmol/L (136-145)
[2019-09-16] MEDS ORDERED: Potassium Chloride 20 MEQ TAB PO SCH (02:30)
[2019-09-16] MEDS: hydrALAZINE 20 MG/ML VIAL SLOW IVP PRN (03:17)
[2019-09-16] MEDS ORDERED: Fioricet 325/50/40 mg Tablet PO PRN (04:41)
[2019-09-16 05:02] LABS: ALT (SGPT) 45 U/L (8-55); AST (SGOT) 38 U/L (5-34); Albumin 3.5 g/dL (3.4-4.8); Alkaline Phosphatase 90 U/L (40-110); Anion Gap 11 mmol/L (10-20); BUN (Urea Nitrogen) 34 mg/dL (9.8-20.1); Bilirubin, Total 0.6 mg/dL (0.2-1.2); Calc. Creatinine Clearance 40 mL/min (70-130); Calcium 9.4 mg/dL (7.8-10.44); Carbon Dioxide 23 mmol/L (23-31); Chloride 107 mmol/L (98-107); Estimated GFR-MDRD 36; Globulin 3.7 g/dL (2.4-3.5); Glucose 184 mg/dL (80-115); Magnesium 1.6 mg/dL (1.6-2.6); Potassium 3.3 mmol/L (3.5-5.1); Protein, Total 7.2 g/dL (6.0-8.3); Sodium 138 mmol/L (136-145)
[2019-09-16] MEDS: Furosemide 20 MG/2 ML VIAL SLOW IVP SCH (06:31)
[2019-09-16 07:15] VITALS: BP 173/94; TEMP 97.8
--- NOTE | 2019-09-16 07:30 | PDOC.HOSPP ---
- Subjective Encounter Date: 09/16/19 Encounter Time: 09:40 Subjective: Patient had some right sided chest pain that woke her up early this AM. Resolved now. BP improved. SOB improved. - Objective Vital Signs & Weight: Vital Signs (12 hours) Temp Pulse Resp BP BP Pulse Ox 09/16/19 07:13 97.8 F 69 18 173/94 H 98 09/16/19 04:35 83 173/97 H 09/16/19 03:17 84 185/99 H 09/16/19 03:09 99.2 F 84 16 185/99 H 99 09/16/19 01:06 84 139/79 09/16/19 01:01 82 164/89 H 09/16/19 00:56 85 168/96 H 09/16/19 00:25 98.5 F 84 17 170/80 H 96 09/15/19 19:36 98.1 F 77 16 178/87 H 98 Weight Admit Weight 172 lb 9.951 oz Weight 170 lb 14.4 oz I&O: 09/15/19 09/16/19 09/17/19 06:59 06:59 06:59 Intake Total 1040 Output Total 1425 Balance -385 Result Diagrams: 09/15/19 01:15 09/16/19 04:29 Additional Labs: Accuchecks 09/16/19 09/15/19 06:32 19:59 POC Glucose 213 H 222 H Hospitalist ROS - Review of Systems Constitutional: denies: fever, sweats Respiratory: denies: cough, shortness of breath Cardiovascular: denies: palpitations Gastrointestinal: denies: nausea, vomiting, abdominal pain - Medication Medications: Active Medications Generic Name Dose Route Start Last Admin Trade Name Freq PRN Reason Stop Dose Admin Acetaminophen 650 mg 09/15/19 06:16 09/16/19 01:08 Tylenol PO 650 mg Q4H PRN Administration Headache/Fever/Mild Pain (1-3) Acetaminophen/Butalbital/Caffeine 1 tab 09/16/19 04:41 09/16/19 05:25 Fioricet PO 09/21/19 04:42 1 tab Q8H PRN Administration Headache Aspirin 81 mg 09/15/19 09:00 09/15/19 07:41 Ecotrin PO 81 mg DAILY SAVANNAH Administration Atorvastatin Calcium 10 mg 09/15/19 21:00 09/15/19 21:48 Lipitor PO 10 mg HS SAVANNAH Administration Carvedilol 12.5 mg 09/15/19 08:00 09/15/19 16:13 Coreg PO 12.5 mg BID-WM SAVANNAH Administration Clonidine 0.2 mg 09/15/19 09:00 09/15/19 21:48 Catapres PO 0.2 mg TID SAVANNAH Administration Ferrous Sulfate 325 mg 09/15/19 09:00 09/15/19 21:47 Feosol PO 325 mg BID SAVANNAH Administration Furosemide 20 mg 09/15/19 14:00 09/16/19 06:31 Lasix SLOW IVP 20 mg 0600,1400 SAVANNAH Administration Gabapentin 300 mg 09/15/19 09:00 09/15/19 21:48 Neurontin PO 300 mg BID SAVANNAH Administration Hydralazine HCl 10 mg 09/15/19 06:18 09/16/19 03:17 Apresoline SLOW IVP 10 mg Q4H PRN Administration SBP Greater Than 180 Hydralazine HCl 75 mg 09/15/19 15:00 09/15/19 21:47 Apresoline PO 75 mg TID SAVANNAH Administration Insulin Human Lispro 0 units 09/15/19 20:13 09/16/19 06:38 Humalog SC 3 unit .MILD SLIDING SCALE PRN Administration Mild Correctional Scale Insulin Human Lispro 0 units 09/15/19 20:13 09/15/19 21:49 Humalog SC 2 unit .BEDTIME SLIDING SC PRN Administration Bedtime Correctional Scale Isosorbide Dinitrate 20 mg 09/15/19 09:00 09/15/19 21:48 Isordil PO 20 mg TID SAVANNAH Administration Magnesium Oxide 400 mg 09/15/19 09:00 09/15/19 21:48 Magnesium Oxide PO 400 mg BID SAVANNAH Administration Nitroglycerin 0.4 mg 09/16/19 00:41 09/16/19 01:02 Nitrostat SL 0.4 mg Q5MIN PRN Administration Chest Pain Pantoprazole Sodium 40 mg 09/15/19 09:00 09/15/19 07:44 Protonix PO 40 mg DAILY SAVANNAH Administration Sodium Chloride 10 ml 09/15/19 09:00 09/15/19 22:48 Flush - Normal Saline IVF 10 ml Q12HR SAVANNAH Administration - Exam General Appearance: NAD, awake alert ENT: moist mucosa Heart: RRR, no murmur, no gallops, no rubs Respiratory: CTAB, no wheezes, no rales, no ronchi, normal chest expansion, no tachypnea Gastrointestinal: soft, non-tender, non-distended, normal bowel sounds, no palpable masses, no hepatomegaly, no splenomegaly Extremities: no edema Psychiatric: normal affect, normal behavior, A&O x 3 Hosp A/P (1) Hypertensive urgency Code(s): I16.0 - HYPERTENSIVE URGENCY Status: Resolved (2) Acute on chronic systolic heart failure, NYHA class 2 Code(s): I50.23 - ACUTE ON CHRONIC SYSTOLIC (CONGESTIVE) HEART FAILURE Status : Acute (3) Chronic kidney disease, stage 3 Code(s): N18.3 - CHRONIC KIDNEY DISEASE, STAGE 3 (MODERATE) Status: Chronic (4) Chest pain Code(s): R07.9 - CHEST PAIN, UNSPECIFIED Status: Acute (5) Thoracic aortic aneurysm without rupture Code(s): I71.2 - THORACIC AORTIC ANEURYSM, WITHOUT RUPTURE Status: Acute (6) Diabetes mellitus type 2 in nonobese Code(s): E11.9 - TYPE 2 DIABETES MELLITUS WITHOUT COMPLICATIONS Status: Chronic (7) Hypertension Code(s): I10 - ESSENTIAL (PRIMARY) HYPERTENSION Status: Chronic - Plan Patient with some chest pain overnight. Resolved. No troponin elevation. EKG unchanged. BP improved. No evidence aortic dissection. Cardiac cath last year with minimal CAD. No evidence ACS. Patient has diuresed well. BP better control with medication adjustment. Home this AM. Does have some evidence of cirrhosis on scan. F/u with GI outpatient.
[2019-09-16] MEDS ORDERED: metFORMIN 500 MG TAB PO SCH (08:00)
[2019-09-16] MEDS: Isosorbide Dinitrate 20 MG TAB PO SCH (08:32)
[2019-09-16] MEDS: Gabapentin 300 MG CAP PO SCH (08:32)
[2019-09-16] MEDS: Carvedilol 6.25 MG TAB PO SCH (08:33)
[2019-09-16] MEDS: hydrALAZINE 25 MG TAB PO SCH (08:33)
[2019-09-16] MEDS: cloNIDine 0.2 MG TAB PO SCH (08:33)
[2019-09-16] MEDS: Aspirin 81 mg Enteric Coated Tablet PO SCH (08:33)
[2019-09-16] MEDS: Ferrous Sulfate 325 MG TAB PO SCH (08:34)
[2019-09-16] MEDS: Magnesium Oxide 400 MG TAB PO SCH (08:34)
[2019-09-16] MEDS ORDERED: Amlodipine 5 MG TAB PO SCH (09:00)
--- NOTE | 2019-09-16 09:21 | PRG ---
DATE OF SERVICE: 09/16/2019 SUBJECTIVE: Ms. Barrera is a 64-year-old black female, seen by the Renal [facility] for chronic renal failure secondary to a presumed hypertensive nephropathy/chronic GN. Her breathing is much better. She did have intermittent chest pain. Review of her cardiac cath last year showed minimal findings. No other complaints today. OBJECTIVE: VITAL SIGNS: Blood pressure is 173/94, heart rate 69, respiratory rate 18, and temperature 97.8. GENERAL: The patient is awake, alert, comfortable, not in distress. SKIN: Adequate turgor. HEENT: Pinkish conjunctivae. Anicteric sclerae. NECK: No neck mass. No carotid bruits. No JVD. CHEST: No deformities. LUNGS: Clear breath sounds. No wheezing. No crackles. HEART: Normal sinus rhythm. No murmurs, gallops, or rubs. ABDOMEN: Globular, soft, nontender. No masses. EXTREMITIES: No edema. No deformities. MEDICATIONS: Medications of September 16, 2019 was reviewed. LABORATORY DATA: Laboratories of September 16, 2019, sodium 138, potassium 3.3, chloride 107, carbon dioxide 23, BUN 34, creatinine 1.73, glucose 184, magnesium 1.6, AST 38, ALT 45, albumin 3.5. ASSESSMENT AND PLAN: 1. Chronic renal failure-secondary to either chronic glomerulonephritis. 2. versus hypertensive nephropathy. Stable renal function. No indication for any dialytic intervention. Continue current management. 3. Cirrhosis/chronic hepatitis C-the patient has been recommended previously to follow up with GI. I have instructed her to make an appointment with GI. She will follow up with her PCP. The patient was also instructed to follow up at the [facility] several weeks after discharge. 4. Shortness of breath, resolved. 5. Agree with current management. Agree with planned discharge. Job ID: [id number]
[2019-09-16 10:51] VITALS: BMI 26.7
--- NOTE | 2019-09-16 15:05 | EKG ---
Test Reason : CHEST PAIN Blood Pressure : / mmHG Vent. Rate : 079 BPM Atrial Rate : 079 BPM P-R Int : 214 ms QRS Dur : 098 ms QT Int : 404 ms P-R-T Axes : 051 017 086 degrees QTc Int : 463 ms Sinus rhythm with 1st degree A-V block Otherwise normal ECG Confirmed by SULMA JOHNSON ([id number]), web editor BRENNAN ADKINS ([id number] on 09/16/2019 3:04:15 PM Referred By: Confirmed By:SULMA JOHNSON
--- NOTE | 2019-09-16 16:56 | DIS ---
DATE OF ADMISSION: 09/15/2019 DATE OF DISCHARGE: 09/16/2019 PRIMARY CARE PHYSICIAN: [facility]. REASON FOR ADMISSION: CHF exacerbation with hypertensive urgency. DIAGNOSES AT DISCHARGE: 1. Hypertensive urgency, resolved. 2. Acute on chronic systolic congestive heart failure. 3. Chronic kidney disease, stage 3, chronic glomerular nephritis versus hypertensive nephropathy. 4. Chest pain, resolved. 5. Thoracic aortic aneurysm without rupture. 6. Diabetes mellitus type 2. 7. Hypertension. 8. Cirrhosis of the liver. PROCEDURES: CT of the thorax aortic dissection protocol showing a stable 4.5 cm aortic arch and descending thoracic aortic aneurysm without any evidence of rupture, stable from CT from 2014, also with cirrhotic morphology of the liver and moderate coronary artery disease. CONSULTATIONS: Nephrology, Dr. Degroot. SUMMARY OF HOSPITAL COURSE: This is a 64-year-old female with chronic systolic congestive heart failure, who presented to the emergency room with shortness of breath, lower extremity edema, dry cough, and some chest tightness, substernal. The patient was found to be in hypertensive emergency by EMS with a blood pressure of 214/110. She received nitroglycerin and had improvement in her symptoms. She had a CT done as above to rule out aneurysmal rupture. She was then admitted to the hospital. She was given diuretics, fluid-restricted. Her creatinine was stable, but elevated with chronic kidney disease. Dr. Degroot was consulted and did follow during the hospitalization. The patient did well with diuresis, had improvement in her shortness of breath and no more chest tightness. She did have some right-sided chest pain overnight, this resolved, had negative changes in EKG, no elevation of troponins. Her blood pressures were difficult to control. We did have to increase her home medications and add amlodipine and it was doing better, though still not in where it eventually needs to be. She was asymptomatic the day of discharge and is being discharged home. DISCHARGE MANAGEMENT: Discharged home. ACTIVITY: As tolerated. DIET: Fluid restricted healthy heart diet with consistent carbs. FOLLOWUP: Follow up with Dr. Degroot as directed and follow up with primary care physician in 7 days. She also needs to get a followup from the GI clinic about her cirrhosis. DISCHARGE MEDICATIONS: 1. Amlodipine 5 mg daily, 30 tablets dispensed. 2. Furosemide 20 mg daily, 30 tablets dispensed. 3. Hydralazine 75 mg 3 times a day, 90 tablets dispensed. 4. Aspirin 81 mg daily. 5. Atorvastatin 10 mg at night. 6. Carvedilol 12.5 mg twice a day. 7. Clonidine 0.2 mg 3 times a day. 8. Ferrous sulfate 325 mg twice a day. 9. Gabapentin 300 mg twice a day. 10. Isosorbide dinitrate 20 mg 3 times a day. 11. Metformin 500 mg twice a day. 12. Protonix 40 mg daily. Job ID: [id number]
--- NOTE | 2019-09-16 20:58 | EKG ---
Test Reason : STAT Blood Pressure : / mmHG Vent. Rate : 080 BPM Atrial Rate : 080 BPM P-R Int : 218 ms QRS Dur : 096 ms QT Int : 434 ms P-R-T Axes : 067 005 089 degrees QTc Int : 500 ms Sinus rhythm with 1st degree A-V block Prolonged QT Abnormal ECG When compared with ECG of 15-SEP-2019 01:05, (Unconfirmed) No significant change was found Confirmed by Alcira HENRY ([id number]) on 09/16/2019 8:58:20 PM Referred By: MILANA Confirmed By:Alcira HENRY
== END 2019-09-16 10:29 | disposition home or self-care (01) ==
LOC: ERS 00:46 → 2SW 03:24
PROVIDERS: ADMIT Internal Medicine; ATTEND Internal Medicine
DX: I16.0 Hypertensive urgency (principal); I13.0 Hypertensive heart and chronic kidney disease with heart failure and stage 1 through stage 4 chronic kidney disease, or unspecified chronic kidney disease; E11.22 Type 2 diabetes mellitus with diabetic chronic kidney disease; N18.3 Chronic kidney disease, stage 3 (moderate); I50.23 Acute on chronic systolic (congestive) heart failure; I71.2 Thoracic aortic aneurysm, without rupture; K74.60 Unspecified cirrhosis of liver; I25.10 Atherosclerotic heart disease of native coronary artery without angina pectoris; D63.1 Anemia in chronic kidney disease; D69.6 Thrombocytopenia, unspecified; F32.9 Major depressive disorder, single episode, unspecified; I44.0 Atrioventricular block, first degree; B18.2 Chronic viral hepatitis C; Z79.82 Long term (current) use of aspirin; Z79.84 Long term (current) use of oral hypoglycemic drugs; Z79.899 Other long term (current) drug therapy; Z87.891 Personal history of nicotine dependence; Z88.0 Allergy status to penicillin
CPT/HCPCS: 36415; 36416; 71045; 71275; 72191; 74175; 80053; 83735; 83880; 84484; 85025; 93005; 93010; 93798; 96374; 96375; 96376; G0378; J0360; J1940; Q9967